=== PATIENT | male | born 1960 | race Caucasian/White ===

== ENCOUNTER 2017-06-08 11:26 | Emergency (ER) | payer BC ==
[~2017-06-08] VITALS: Ht 170.2 cm; Wt 111.7 kg
[~2017-06-08 11:26] MED LIST: ACET-1256 PO; ASPEC81 PO; ATEN50TA8 PO; BENA-4 PO; FLAXSEED OIL PO; PRAV20TA3 PO
[2017-06-08 11:32] VITALS: TEMP 36.8; Ht 170.2 cm; Wt 111.7 kg
[2017-06-08] MEDS ORDERED: MULT-506 PO (11:52)
[2017-06-08] MEDS ORDERED: ASPI81TA28 PO (11:52)
[2017-06-08] MEDS ORDERED: PRAV20TA PO (11:52)
[2017-06-08] MEDS ORDERED: BENA20TA12 PO (11:52)
[2017-06-08] MEDS ORDERED: ASCO-63 PO (11:52)
[2017-06-08] MEDS ORDERED: FLAX100024 PO (11:52)
[2017-06-08] MEDS ORDERED: HYDROmorphone INJ 1 MG/ML SYR IV STA (12:16)
[2017-06-08] MEDS ORDERED: ACETAMINOPHEN 500 MG TAB PO STA (12:16)
[2017-06-08] MEDS ORDERED: KETOROLAC TROMETHAMINE 30 MG/ML VIAL IV STA (12:16)
[2017-06-08] MEDS ORDERED: DEXAMETHASONE INJ 10 MG in SYRINGE 0 ML IV STA (12:16)
[2017-06-08 12:42] LABS: BASO % 0.3 %; BASO ABS # 0.04 K/uL (0-0.2); HEMATOCRIT 43.2 % (42-52); HEMOGLOBIN 15.6 g/dL (14.0-18.0); IG# 0.06 K/uL (0.00-0.02); LYMPH ABS # 2.55 K/uL (1.2-3.4); MEAN CELL VOLUME 83.4 fL (80-100); MEAN CORPUSCULAR HEMOGLOBIN 30.1 pg (25-34); MEAN CORPUSCULAR HGB CONC 36.1 g/dl (32-36); MONO % 5.4 %; MONO ABS # 0.63 K/uL (0.11-0.59); NEUT % 71.8 %; PLATELET COUNT 209 K/uL (130-400); RED CELL DISTRIBUTION WIDTH CV 13.3 % (11.5-14.5); RED CELL DISTRIBUTION WIDTH SD 39.7 fL (36.4-46.3); WHITE BLOOD COUNT 11.58 K/uL (4.8-10.8)
[2017-06-08 12:51] LABS: PTT PATIENT 25.1 SECONDS (21.0-31.0)
--- NOTE | 2017-06-08 13:00 | EMERGENCY ROOM VISIT NOTE ---
History Report prepared by Michael: Tyrese Resendiz Under the Supervision of: Dr. Brian Lara M.D. First contact with patient: 12:00 Chief Complaint: HIP PAIN Stated Complaint: L HIP PAIN History of Present Illness The patient is a 56 year old white male with a past medical history of sciatica , HTN, HDL, diabetes, GERD who presents to the ED with a cc of worsening left hip pain beginning four days ago. Pain radiates down his left leg. Pain worsened significantly today after walking down some stairs. Patient's pain is much worse than previous sciatic pain. Nothing has improved the pain today. Negative numbness, or bowel or bladder incontinence. No IV drug use. No history of cancer or unintended weight loss. Source of History: patient Onset: Four days ago Position: other (left hip) Timing: worsening Modifying Factors (Relieving): other (none) Note: Negative bowel or bladder incontinence. Review of Systems See HPI for pertinent positives and negatives. A total of ten systems were reviewed and were otherwise negative. Past Medical & Surgical Medical Problems: (1) HTN (hypertension) Surgical Problems: (1) H/O spinal fusion Family History No pertinent family history stated. Social History Smoking Status: Never Smoker Alcohol Use: none Drug Use: none Marital Status: Occupation Status: employed Current/Historical Medications Scheduled Ascorbic Acid (Vitamin C), 1,000 MG PO DAILY Aspirin (Aspirin Ec), 81 MG PO DAILY Atenolol (Tenormin), 50 MG PO QPM Benazepril & Hydrochlorothiazi (Lotensin Hct 20MG/25MG), 1 TAB PO DAILY Flaxseed (Linseed) (Flaxseed Oil), 1,000 MG PO BID Methylprednisolone (Medrol Dosepak), 0 PO DAILY Multivitamin (Multivitamin), 1 TAB PO DAILY Pravastatin (Pravachol ), 20 MG PO DAILY Tramadol Hcl (Ultram), 50 MG PO Q8H Scheduled PRN Cyclobenzaprine Hcl (Flexeril), 5 MG PO TID PRN for Muscle Spasms Allergies Coded Allergies: Azithromycin (Unverified Allergy, Mild, 10/07/15) Physical Exam Vital Signs Date Time Temp Pulse Resp B/P (MAP) Pulse Ox O2 Delivery O2 Flow Rate FiO2 06/08/17 13:00 57 18 123/69 95 Room Air 06/08/17 12:49 54 06/08/17 11:32 36.8 62 18 144/76 98 Room Air Physical Exam GENERAL: Awake, alert, well-appearing, NAD, prone position on exam. HENT: Normocephalic, atraumatic. EYES: Normal conjunctiva. Sclera non-icteric. NECK: Supple. No nuchal rigidity. FROM. RESPIRATORY: CTAB, no rhonchi, wheezing, crackles CARDIAC: RRR, no MRG ABDOMEN: Soft, NTND, BS+ MSK: No chest wall TTP, no LE edema. Pain in the left paraspinal area. 5/5 strength with knee flexion/extension, and ankle flexion/extension. Left leg does not appear short, IR, or ER. NEURO: GCS 15, CN 2-12 intact, moves all 4s on command SKIN: No rash or jaundice noted. Medical Decision & Procedures ER Provider Diagnostic Interpretation: Radiology results as stated below per my review and radiologist interpretation: PELVIS 1 OR 2 VIEW ROUTINE FINDINGS: The sacroiliac joints and symphysis pubis are intact. There is no acute fracture within the pelvis or the hips. Left pelvic calcifications reflect phleboliths. IMPRESSION: No acute fracture within the pelvis or hips. Electronically signed by: Manolo Ashton M.D. 06/08/2017 1:29 PM LUMBAR SPINE 5 VIEWS FINDINGS: There is no fracture. No subluxation. Mild disc space narrowing at L4-L5. Small endplate osteophytes seen throughout the lumbar spine. Mild facet osteoarthritis seen within the lower lumbar spine. There also mild degenerative changes within the bilateral sacroiliac joints. IMPRESSION: No fracture or subluxation within the lumbar spine. Mild degenerative changes as described above. Electronically signed by: Lincoln Garrison M.D. 06/08/2017 1:30 PM L HIP UNILATERAL 2 VIEWS FINDINGS: Alignment of the left hip is anatomic. There is no acute fracture. Left space is preserved. Left pelvic calcifications reflect phleboliths. IMPRESSION: No acute fracture or dislocation of the left hip. Electronically signed by: Manolo Ashton M.D. 06/08/2017 1:30 PM Laboratory Results 06/08/17 12:35 Red Blood Count 5.18, Mean Corpuscular Volume 83.4, Mean Corpuscular Hemoglobin 30.1, Mean Corpuscular Hemoglobin Concent 36.1, Mean Platelet Volume 10.0, Neutrophils (%) (Auto) 71.8, Lymphocytes (%) (Auto) 22.0, Monocytes (%) (Auto) 5.4, Eosinophils (%) (Auto) 0.0, Basophils (%) (Auto) 0.3, Neutrophils # (Auto) 8.30, Lymphocytes # (Auto) 2.55, Monocytes # (Auto) 0.63, Eosinophils # (Auto) 0.00, Basophils # (Auto) 0.04 06/08/17 12:35 Test 06/08/17 12:35 White Blood Count 11.58 K/uL (4.8-10.8) Red Blood Count 5.18 M/uL (4.7-6.1) Hemoglobin 15.6 g/dL (14.0-18.0) Hematocrit 43.2 % (42-52) Mean Corpuscular Volume 83.4 fL (80-100) Mean Corpuscular Hemoglobin 30.1 pg (25-34) Mean Corpuscular Hemoglobin Concent 36.1 g/dl (32-36) Platelet Count 209 K/uL (130-400) Mean Platelet Volume 10.0 fL (7.4-10.4) Neutrophils (%) (Auto) 71.8 % Lymphocytes (%) (Auto) 22.0 % Monocytes (%) (Auto) 5.4 % Eosinophils (%) (Auto) 0.0 % Basophils (%) (Auto) 0.3 % Neutrophils # (Auto) 8.30 K/uL (1.4-6.5) Lymphocytes # (Auto) 2.55 K/uL (1.2-3.4) Monocytes # (Auto) 0.63 K/uL (0.11-0.59) Eosinophils # (Auto) 0.00 K/uL (0-0.5) Basophils # (Auto) 0.04 K/uL (0-0.2) RDW Standard Deviation 39.7 fL (36.4-46.3) RDW Coefficient of Variation 13.3 % (11.5-14.5) Immature Granulocyte % (Auto) 0.5 % Immature Granulocyte # (Auto) 0.06 K/uL (0.00-0.02) Prothrombin Time 10.1 SECONDS (9.0-12.0) Prothromb Time International Ratio 1.0 (0.9-1.1) Activated Partial Thromboplast Time 25.1 SECONDS (21.0-31.0) Partial Thromboplastin Ratio 1.0 Anion Gap 7.0 mmol/L (3-11) Est Creatinine Clear Calc Drug Dose 103.6 ml/min Estimated GFR () 103.3 Estimated GFR (Non- 89.1 BUN/Creatinine Ratio 13.5 (10-20) Calcium Level 9.2 mg/dl (8.5-10.1) Laboratory results reviewed by me Medications Administered Medications (Trade) Dose Ordered Sig/Yann Route Start Time Stop Time Status Last Admin Dose Admin Dexamethasone Sodium Phosphate 10 mg/Syringe 2.5 ml @ 1 mls/min ONE STAT IV 06/08/17 12:16 06/08/17 12:19 DC 06/08/17 12:38 1 MLS/MIN Hydromorphone HCl (Dilaudid Inj) 1 mg NOW STAT IV 06/08/17 12:16 06/08/17 12:19 DC 06/08/17 12:35 1 MG Ketorolac Tromethamine (Toradol Inj) 30 mg NOW STAT IV 06/08/17 12:16 06/08/17 12:19 DC 06/08/17 12:36 30 MG Acetaminophen (Tylenol Tab) 1,000 mg NOW STAT PO 06/08/17 12:16 06/08/17 12:19 DC 06/08/17 12:36 1,000 MG ED Course 1210: The patient was evaluated in room C4. A complete history and physical exam was performed. 1327: I reassessed the patient. His pain is much improved. I informed him of his need for a follow-up appointment. 1400: I reevaluated the patient. Discussed results and discharge instructions: he verbalized understanding and agreement. 1430: The patient ambulated successfully. The patient is ready for discharge. Medical Decision The patient is a 56 year old white male with a past medical history of sciatica , HTN, HDL, diabetes, GERD who presents to the ED with a cc of worsening left hip pain beginning four days ago. Differential diagnosis etiologies such as fracture, dislocation, neurovascular compromise, compartment syndrome, soft tissue injury, as well as others were entertained. Patient was seen and evaluated the bedside. Patient is a history of hypertension hyperlipidemia reflux and diabetes which he takes medications. Patient states he was walking down the stairs to help fix fire at which point he has very severe left-sided hip and back pain. Patient states that it radiates and is sharp in nature. Patient denies any bowel or bladder incontinence or retention. Patient denies any saddle anesthesia. Patient does not have any other high risk back pain signs which include fever, unexplained weight loss, history of cancer, immunosuppression, or IV drug abuse. Patient did have blood work that was completed along with plain films. Patient was also given medications for symptom control. Patient's plain films showed no acute fracture or dislocation. Patient did have mild degenerative changes of the L-spine. Patient was able to ambulate. Patient was given strict follow-up , discharge, return precautions. Patient was told to follow-up with his primary care in addition was given referral to orthopedist's groups. I do not believe the patient has cauda equina, fracture, dislocation given the patient's history and physical exam. I do not believe that the patient requires any more advanced imaging at this time as the patient's pain is improved and he is ambulatory. Patient was given strict follow-up, discharge, and return precautions. All questions were answered. Patient was deemed suitable for outpatient follow-up at this time. Patient agreed with the plan of care and was safely discharged home. Medication Reconcilliation Current Medication List: was personally reviewed by me Blood Pressure Screening Patient's blood pressure: Normal blood pressure Blood pressure disposition: Did not require urgent referral Impression Primary Impression: Sciatica Additional Impression: Lumbar back pain Scribe Attestation The scribe's documentation has been prepared under my direction and personally reviewed by me in its entirety. I confirm that the note above accurately reflects all work, treatment, procedures, and medical decision making performed by me. Departure Information Dispostion Home / Self-Care Prescriptions Tramadol Hcl (ULTRAM) 50 Mg Tab 50 MG PO Q8H, #15 TAB PRN PAIN Prov: Brian Lara M.D. 06/08/17 Methylprednisolone (MEDROL DOSEPAK) 4 Mg Miguel 0 PO DAILY, #1 PKT Prov: Brian Lara M.D. 06/08/17 Cyclobenzaprine Hcl (FLEXERIL) 10 Mg Tab 5 MG PO TID Y for Muscle Spasms, #15 TAB Prov: Brian Lara M.D. 06/08/17 Referrals Maegan Merchant M.D. (PCP) [facility] Patient Instructions Back Pain - [facility], Back Pain Relieve, ED Sciatica, [facility] Additional Instructions Please return to the emergency department if you have worsening or recurrent symptoms not amenable to at-home treatment. Please call for a follow-up appointment with her primary care physician. Please take your medications as prescribed. If you have other concerns and/or complaints please feel free to also call your primary care physician's office or return the ED for further evaluation, management, and treatment. Please follow-up with your PCP at your earliest convenience in order to obtain further evaluation and treatment for her chronic low back pain. This may include stretching, exercises, and/or dedicated physical therapy. He may also benefit from seeing a back specialist and/or receiving injections. You may take tylenol 650 mg every 6 hours as needed for pain. Avoid NSAIDs while on the steroids. Please also make sure that if you try the additional pain medications and should not take a muscle relaxant the same time. Please wait 45 minutes that if he still have discomfort you may try the other medication. Take your medications as prescribed. If taking an antibiotic consider taking a probiotic and/or eating yogurt, but at the least, please take with food as it can cause upset stomach. While taking the steroids please take them in the morning and with food. Please also take a medicine like famotidine or Pepcid help with acid production. You have been examined and treated today on an emergency basis only. This is not a substitute for, or an effort to provide, complete comprehensive medical care. It is impossible to recognize and treat all injuries or illnesses in a single emergency department visit. It is therefore important that you follow up closely with [facility], your PCP, and/or your specialist(s). Call as soon as possible for an appointment. Thank you for your time and consideration. I look forward to speaking with you again soon. Please don't hesitate to call us if you have any questions. Problem Qualifiers Primary Impression: Sciatica Laterality: left Qualified Codes: M54.32 - Sciatica, left side
[2017-06-08 13:02] LABS: CALCIUM 9.2 mg/dl (8.5-10.1); CREATININE 0.95 mg/dl (0.60-1.40); POTASSIUM 3.6 mmol/L (3.5-5.1)
--- NOTE | 2017-06-08 13:30 | DIAGNOSTIC IMAGING REPORT ---
PELVIS 1 OR 2 VIEW ROUTINE CLINICAL HISTORY: Left hip pain following fall. COMPARISON STUDY: CT of the abdomen and pelvis August 05, 2009. FINDINGS: The sacroiliac joints and symphysis pubis are intact. There is no acute fracture within the pelvis or the hips. Left pelvic calcifications reflect phleboliths. IMPRESSION: No acute fracture within the pelvis or hips. Electronically signed by: Manolo Ashton M.D. 06/08/2017 1:29 PM Dictated Date/Time: 06/08/2017 1:26 PM
--- NOTE | 2017-06-08 13:31 | DIAGNOSTIC IMAGING REPORT ---
LUMBAR SPINE 5 VIEWS HISTORY: Left sided paraspinal pain, h/o sciatica, COMPARISON: None. FINDINGS: There is no fracture. No subluxation. Mild disc space narrowing at L4-L5. Small endplate osteophytes seen throughout the lumbar spine. Mild facet osteoarthritis seen within the lower lumbar spine. There also mild degenerative changes within the bilateral sacroiliac joints. IMPRESSION: No fracture or subluxation within the lumbar spine. Mild degenerative changes as described above. Electronically signed by: Lincoln Garrison M.D. 06/08/2017 1:30 PM Dictated Date/Time: 06/08/2017 1:27 PM
--- NOTE | 2017-06-08 13:31 | DIAGNOSTIC IMAGING REPORT ---
L HIP UNILATERAL 2 VIEWS CLINICAL HISTORY: Fall, hip pain. COMPARISON: CT of the abdomen and pelvis August 05, 2009. FINDINGS: Alignment of the left hip is anatomic. There is no acute fracture. Left space is preserved. Left pelvic calcifications reflect phleboliths. IMPRESSION: No acute fracture or dislocation of the left hip. Electronically signed by: Manolo Ashton M.D. 06/08/2017 1:30 PM Dictated Date/Time: 06/08/2017 1:29 PM
[2017-06-08] MEDS ORDERED: METH4PAK PO (14:02)
[2017-06-08] MEDS ORDERED: TRAM-453 PO (14:02)
[2017-06-08] MEDS ORDERED: CYCL10TA6 PO (14:02)
[2017-06-08 14:40] VITALS: BP 106/49; PULSE 70; O2SAT 93
--- NOTE | 2017-06-08 17:09 | Pharmacy Progress Note ---
ED Pharmacist Progress Note Date of Service: Jun 08, 2017. Placed a verbal prescription for tramadol 50mg q8h prn qty 15 to danial luis as a verbal from Dr. Lara.
[2017-07-19] MEDS ORDERED: OXYC15TA89 PO (08:25)
[2017-07-19] MEDS ORDERED: KETO10TA PO (08:29)
== END 2017-06-08 14:40 | disposition home or self-care (01) ==
LOC: EDBD 11:26 → C.EDC 11:27
DX: M54.40 Lumbago with sciatica, unspecified side (principal); I10 Essential (primary) hypertension; Z98.1 Arthrodesis status; Z79.82 Long term (current) use of aspirin; Z79.899 Other long term (current) drug therapy; Z88.3 Allergy status to other anti-infective agents

== ENCOUNTER 2017-06-28 13:31 | Emergency (ER) | payer BC ==
[~2017-06-28] VITALS: Ht 172.7 cm; Wt 106.8 kg
[~2017-06-28 13:31] MED LIST changes: -ACET-1256 PO; +ASCO-63 PO; -ASPEC81 PO; +ASPI81TA28 PO; -BENA-4 PO; +BENA20TA12 PO; +FLAX100024 PO; -FLAXSEED OIL PO; +MULT-506 PO; +PRAV20TA PO; -PRAV20TA3 PO; +TRAM-453 PO
[2017-06-28 13:41] VITALS: TEMP 36.9; Ht 172.7 cm; Wt 106.8 kg
[2017-06-28] MEDS ORDERED: GABA-113 PO (14:27)
[2017-06-28] MEDS ORDERED: HYDR-3419 PO (14:27)
[2017-06-28] MEDS ORDERED: MISCCAP80 PO (14:27)
[2017-06-28] MEDS ORDERED: MoRPHine SULFATE 4 MG/ML 1 ML CARP\\VIAL IV STA (14:44)
[2017-06-28] MEDS ORDERED: MoRPHine SULFATE 4 MG/ML 1 ML CARP\\VIAL IV PRN (14:45)
--- NOTE | 2017-06-28 15:02 | EMERGENCY ROOM VISIT NOTE ---
History First contact with patient: 13:58 Chief Complaint: BACK PAIN Stated Complaint: BACK PAIN History of Present Illness 56M with a PMHX of HTN and HLD who presents to the Emergency Room with complaints of acute worsening of his back pain x 1 day. His back pain has been going on for four weeks, it has been radiating to the LLE. He got an MRI from 611 on Jun 21 that showed according to two herniated disks. He got an injection on Jun 21 in his lower back (pt thinks it was a steroid) from Dr. Matta that completely alleviated the pain for several days. The injection wore off on Monday. Patient denies any urinary incontinence or numbness and tingling in between his legs. Pt has been taking Hydrocodone 7.5 /Acetaminophen tab Q6H PRN pain but has been trying to wean down in the past few days. PDMP reviewed and he received Hydrocodone/Acetaminophen 7.5/325mg, 22 tabs on Jun 19, 2017 (Rx'ed by Dr. Matta) and ultram from a previous ER visit. PMHx: Diverticulitis s/p 12 inches of colonic resection in 1992. 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 ROS: possible fevers, possible chills, no dysuria, last BM was two days ago, no urinary incontinence, no rashes, reports that his radicular LE pain has resolved , no nausea, no vomiting. Review of Systems See HPI for pertinent positives and negatives. A total of ten systems were reviewed and were otherwise negative. Past Medical/Surgical History Medical Problems: (1) HTN (hypertension) Surgical Problems: (1) H/O spinal fusion Social History Smoking Status: Never Smoker Alcohol Use: none Drug Use: none Marital Status: Occupation Status: employed Current/Historical Medications Scheduled Aspirin (Aspirin Ec), 81 MG PO DAILY Atenolol (Tenormin), 50 MG PO QPM Benazepril & Hydrochlorothiazi (Lotensin Hct 20MG/25MG), 1 TAB PO DAILY Flaxseed (Linseed) (Flaxseed Oil), 1,000 MG PO BID Gabapentin (Neurontin), 300 MG PO BID Pravastatin (Pravachol ), 20 MG PO DAILY Probiotic Product (Probiotic), 1 CAP PO DAILY Tramadol Hcl (Ultram), 50 MG PO Q8H Scheduled PRN Hydrocodon/Acetaminophen 5MG/300MG (Vicodin (5MG/300MG)), 1 TAB PO Q4H PRN for Pain Physical Exam Vital Signs Date Time Temp Pulse Resp B/P (MAP) Pulse Ox O2 Delivery O2 Flow Rate FiO2 06/28/17 19:59 86 16 100/59 96 Room Air 06/28/17 18:02 98 16 94/61 95 Room Air 06/28/17 15:04 107 16 112/72 95 Room Air 06/28/17 13:41 36.9 113 16 104/62 95 Room Air Physical Exam Gen: Pt appears in mild distress, turned onto the left side. HEENT: Head - normocephalic and atraumatic. Pupils are equal, round, and reactive to light. Extraocular eye muscles are intact and sclera are anicteric. Ears - bilaterally patent canals with noninjected tympanic membranes and no evidence of hemotympanum. Nose - moist nasal mucosa without discharge. Mouth - moist buccal mucosa. Oropharynx is nonerythematous and there is no tonsillar exudate or edema noted. Neck: Supple; no JVD, nuchal rigidity, cervical lymphadenopathy, or auscultated bruits. Heart: Regular rate and rhythm. There is a normal S1 and S2 with no murmurs, clicks, or gallops appreciated. Lungs: Clear to auscultation bilaterally with no wheezes, rales, or rhonchi. Abdomen: Soft, mild discomfort to deep palpation in the LLQ, nondistended, with good bowel sounds. There are no palpable pulsatile masses or hepatosplenomegaly. There is no guarding, rigidity, or rebound noted. Extremities: No evidence of cyanosis, clubbing, or edema. There are easily palpable peripheral pulses. MSK: Straight leg raise test was negative. Left knee and left thigh were tender to palpation. Thoracic, lumbar and sacral area was non tender to palpation on the spinous processes and paraspinally. There were no signs of trauma to the back or the hips. The patient was able to sit up on his own without difficulty. Left Knee exam: No joint effusions but he had a tender patella and posterior aspect of the knee. No ACL, PCL, LCL or MCL abnormalities on the left side. No signs of trauma or ecchymosis. No masses in the posterior fossa appreciated. Right Knee exam: No joint effusions, completely non tender to palpation. No ACL, PCL, LCL or MCL abnormalities on the left side. No signs of trauma or ecchymosis. No masses in the posterior fossa appreciated. Thigh Exam: Anterior aspect of the left thigh was tender. No signs of trauma to the thigh. Neuro:The patient is awake and alert, oriented to day, time, and place. Muscle strength is 5/5 in all 4 extremities. The patient has equal napper tender strength and equal pedal push and pull. There are no cerebellar signs. Medical Decision & Procedures ER Provider Diagnostic Interpretation: MRI OF THE LUMBAR SPINE COMBO CLINICAL HISTORY: Low back pain. Reported history of recent steroid injection. COMPARISON STUDY: Radiographs of the lumbar spine dated 06/08/2017. Abdominal CT dated 08/05/2009. TECHNIQUE: MRI of the lumbar spine is performed utilizing various T1 and T2-weighted sequences in the axial and sagittal planes. Contrast-enhanced sequences are acquired following the IV administration of 10.6 cc of Gadavist. FINDINGS: Lumbar spine: Vertebral body height and alignment are maintained throughout the lumbar spine. Minimal anterior wedging is seen involving T11 and T12. Anterior osteophytes are present throughout. Marrow signal intensity is slightly heterogeneous. The transverse and spinous processes are intact as imaged. There is no evidence of spondylolysis. No destructive bony lesion is identified. Minimal degenerative endplate edema is seen at L1-L2, L2-L3, and L3-L4. Intervertebral discs: Degenerative disc desiccation and loss of height are present at all lumbar levels. Loss of height is greatest at L1-L2 and L2-L3. Spinal cord: The partially imaged spinal cord is normal in morphology and signal intensity. The conus medullaris terminates at the T12-L1 interspace. The nerve roots of the cauda equina are normal in morphology. A punctate enhancing nodule is identified along the cauda equina. This is only seen on sagittal image #8 of the postcontrast series. No additional focus of abnormal enhancement is identified. T11-T12: This level is only seen on the sagittal series. A posterior disc bulge is seen eccentric to the right. There is no high-grade central canal stenosis. T12-L1: This level is only seen on the sagittal series. There is a tiny posterior disc bulge of no consequence. L1-L2: There is a broad-based posterior disc bulge eccentric to the left with annular fissure. There is no significant acquired compromise of the central canal. The disc bulge abuts the transiting left-sided nerve roots. The neural foramina are patent. L2-L3: There is a broad-based posterior disc bulge with annular fissure. In conjunction with hypertrophy of the ligamentum flavum, there is moderate central canal stenosis at this level with a minimum AP diameter of 7 mm. This causes severe bilateral subarticular stenosis, left greater than right, and likely abuts the exiting left L2 nerve root. The disc bulge impinges on the transiting bilateral nerve roots. L3-L4: There is minimal posterior disc bulge. The central canal is clear. The neural foramina are patent. Mild facet arthropathy is of no consequence. L4-L5: The central canal is widely patent. There is minimal disc bulge causing bilateral subarticular stenosis. Facet arthropathy causes mild bilateral neural foraminal narrowing. L5-S1: There is a small central disc bulge. There is no significant acquired compromise of the central canal. Facet arthropathy causes mild right and moderate left neural foraminal stenosis. Mild lipomatosis is present in the central canal at this level. Sacrum: The visualized sacrum is normal in morphology and signal intensity. Soft tissues: There is minimal edema within the left-sided paraspinous musculature at L5-S2. This is best seen on sagittal STIR image #13. There is fatty atrophy of the paraspinous musculature. No fluid collection is seen to suggest abscess. The psoas musculature is within normal limits. The partially imaged retroperitoneal structures are grossly normal but incompletely assessed. The liver appears enlarged on the loading rack supervisor sequence. IMPRESSION: 1. No acute bony abnormality is identified. 2. Multilevel lumbosacral spondylosis as above. This is greatest at L1-L2 and L2-L3. See discussion for detailed [id number] analysis. 3. There is minimal edema within the left paraspinous musculature at the L5-S2 levels. This may be related to the reported history of recent injections. No fluid collection is seen to suggest abscess. 4. There is a punctate nonspecific focus of enhancement/nodularity identified along the cauda equina. This is of indeterminant etiology and significance and is almost certainly not acute. This is pathologically indeterminant and a tiny mass lesion such as schwannoma could have this appearance. Follow-up contrast-enhanced MRI in 3 months time is recommended for follow-up/reassessment. Laboratory Results 06/28/17 15:00 Red Blood Count 5.11, Mean Corpuscular Volume 83.2, Mean Corpuscular Hemoglobin 30.1, Mean Corpuscular Hemoglobin Concent 36.2, Mean Platelet Volume 10.8, Neutrophils (%) (Auto) 94.5, Lymphocytes (%) (Auto) 3.5, Monocytes (%) (Auto) 1.4, Eosinophils (%) (Auto) 0.0, Basophils (%) (Auto) 0.1, Neutrophils # (Auto) 12.88, Lymphocytes # (Auto) 0.48, Monocytes # (Auto) 0.19, Eosinophils # (Auto) 0.00, Basophils # (Auto) 0.01 06/28/17 15:00 Test 06/28/17 15:00 White Blood Count 13.63 K/uL (4.8-10.8) Red Blood Count 5.11 M/uL (4.7-6.1) Hemoglobin 15.4 g/dL (14.0-18.0) Hematocrit 42.5 % (42-52) Mean Corpuscular Volume 83.2 fL (80-100) Mean Corpuscular Hemoglobin 30.1 pg (25-34) Mean Corpuscular Hemoglobin Concent 36.2 g/dl (32-36) Platelet Count 144 K/uL (130-400) Mean Platelet Volume 10.8 fL (7.4-10.4) Neutrophils (%) (Auto) 94.5 % Lymphocytes (%) (Auto) 3.5 % Monocytes (%) (Auto) 1.4 % Eosinophils (%) (Auto) 0.0 % Basophils (%) (Auto) 0.1 % Neutrophils # (Auto) 12.88 K/uL (1.4-6.5) Lymphocytes # (Auto) 0.48 K/uL (1.2-3.4) Monocytes # (Auto) 0.19 K/uL (0.11-0.59) Eosinophils # (Auto) 0.00 K/uL (0-0.5) Basophils # (Auto) 0.01 K/uL (0-0.2) RDW Standard Deviation 39.6 fL (36.4-46.3) RDW Coefficient of Variation 13.1 % (11.5-14.5) Immature Granulocyte % (Auto) 0.5 % Immature Granulocyte # (Auto) 0.07 K/uL (0.00-0.02) Hyposegmented Neutrophils 1+ Anion Gap 9.0 mmol/L (3-11) Est Creatinine Clear Calc Drug Dose 59.2 ml/min Estimated GFR () 53.0 Estimated GFR (Non- 45.7 BUN/Creatinine Ratio 11.4 (10-20) Calcium Level 8.9 mg/dl (8.5-10.1) Medications Administered Medications (Trade) Dose Ordered Sig/Yann Route Start Time Stop Time Status Last Admin Dose Admin Morphine Sulfate (MoRPHine SULFATE INJ) 3 mg NOW STAT IV 06/28/17 14:44 06/28/17 14:48 DC 06/28/17 15:03 3 MG Morphine Sulfate (MoRPHine SULFATE INJ) 3 mg Q4 PRN IV 06/28/17 14:45 06/28/17 20:30 DC 06/28/17 17:59 3 MG Sodium Chloride 1,000 ml @ 999 mls/hr Q1H1M ONCE IV 06/28/17 17:45 06/28/17 18:45 DC 06/28/17 17:58 999 MLS/HR Medical Decision The patient's care and disposition was discussed with Dr. Arreaga, Attending ED Physician. This is a 56M with back pain. Differential diagnosis include lumbar radiculopathy, muscle strain, facture, cauda equina, mass, and disc herniation. Triage Nursing notes were reviewed. ED Course included an extensive history and physical exam, labs and MRI of the lumbar spine. CBC were significant for a WBC of 13,600. BMP was significant for an elevated creatinine of 1.65. Blood cultures were obtained. Pt was given 3mg IV Morphine. 5:41pm - Ordered a bolus of NSS. 7:15 - Patient was informed on MRI results. He appeared more comfortable. Pt was advised to drink more water. We discussed not staying bed, mild to moderate exercise, stretching techniques. Pt was amenable to going home. All questions were answered. Return instructions were outlined and the patient was discharged in good condition. The patient was referred to PCP for recheck of the current condition. Impression Primary Impression: Spondylosis, lumbosacral Departure Information Dispostion Home / Self-Care Condition GOOD Referrals Papi Sales M.D.([facility]) (PCP) Patient Instructions Back Pain - [facility], My [facility] Additional Instructions Please follow up with Dr. Sales and Dr. Matta within the week. You should have a repeat MRI of the Lumbar spine with contrast in 3 months. Please stay well hydrated, your laboratory work showed that you are dehydrated. Please avoid complete bed rest. Complete bed rest can worsen back pain. Return to the ER if you back pain worsens, if you experience an inability to hold your urine, if you fall or if you develop high grade fevers. Resident Involvement: Resident Care Provided Care Provided: Adult ED
[2017-06-28 15:29] LABS: HEMATOCRIT 42.5 % (42-52); HEMOGLOBIN 15.4 g/dL (14.0-18.0); MEAN CELL VOLUME 83.2 fL (80-100); MEAN CORPUSCULAR HEMOGLOBIN 30.1 pg (25-34); MEAN CORPUSCULAR HGB CONC 36.2 g/dl (32-36); MEAN PLATELET VOLUME 10.8 fL (7.4-10.4); PLATELET COUNT 144 K/uL (130-400); RED CELL DISTRIBUTION WIDTH CV 13.1 % (11.5-14.5); RED CELL DISTRIBUTION WIDTH SD 39.6 fL (36.4-46.3); WHITE BLOOD COUNT 13.63 K/uL (4.8-10.8)
[2017-06-28 15:45] LABS: CALCIUM 8.9 mg/dl (8.5-10.1); CREATININE 1.65 mg/dl (0.60-1.40); POTASSIUM 3.4 mmol/L (3.5-5.1)
[2017-06-28 15:53] LABS: BASO % 0.1 %; BASO ABS # 0.01 K/uL (0-0.2); IG# 0.07 K/uL (0.00-0.02); LYMPH % 3.5 %; LYMPH ABS # 0.48 K/uL (1.2-3.4); MONO % 1.4 %; MONO ABS # 0.19 K/uL (0.11-0.59); NEUT % 94.5 %; NEUT ABS # 12.88 K/uL (1.4-6.5)
[2017-06-28] MEDS ORDERED: SODIUM CHLORIDE 0.9% 1000ML 1,000 ML IV ONE (17:45)
--- NOTE | 2017-06-28 18:00 | EMERGENCY ROOM VISIT NOTE ---
History Report prepared by Michael: Tyrese Resendiz Under the Supervision of: Dr. Brandon Arreaga M.D. First contact with patient: 13:58 Chief Complaint: BACK PAIN Stated Complaint: BACK PAIN History of Present Illness The patient is a 56 year old male who presents to the Emergency Room by EMS with complaints of worsening low back pain beginning three days ago. He has been struggling with back pain for the past four weeks, but it worsened significantly three days ago. He received a steroid injection eight days ago which improved the pain until this time. The patient's pain is worsened with movement. He also complains of pain radiating to his left lower extremity and chills today. He feels that he may have had a fever this morning as well. The patient denies cough, urinary incontinence, or numbness of the groin and legs. He denies recent tick bites. He had an MRI one week ago (06/21/2016) which showed two herniated discs. The patient is on four tablets of hydrocodone a day , but has been trying to decrease to two doses per day. Source of History: patient Onset: Three days ago Position: back (lower) Symptom Intensity: severe Timing: worsening Modifying Factors (Worsening): movement Associated Symptoms: + fevers (subjective), + chills, No cough, No numbness (groin and legs) Note: The patient also complains of pain radiating to his left lower extremity. He denies urinary incontinence. Review of Systems See HPI for pertinent positives & negatives. A total of 10 systems reviewed and were otherwise negative. Past Medical & Surgical Medical Problems: (1) HTN (hypertension) Surgical Problems: (1) H/O spinal fusion Family History No pertinent family history stated. Social History Smoking Status: Never Smoker Alcohol Use: none Drug Use: none Marital Status: Occupation Status: employed Current/Historical Medications Scheduled Aspirin (Aspirin Ec), 81 MG PO DAILY Atenolol (Tenormin), 50 MG PO QPM Benazepril & Hydrochlorothiazi (Lotensin Hct 20MG/25MG), 1 TAB PO DAILY Flaxseed (Linseed) (Flaxseed Oil), 1,000 MG PO BID Gabapentin (Neurontin), 300 MG PO BID Pravastatin (Pravachol ), 20 MG PO DAILY Probiotic Product (Probiotic), 1 CAP PO DAILY Tramadol Hcl (Ultram), 50 MG PO Q8H Scheduled PRN Hydrocodon/Acetaminophen 5MG/300MG (Vicodin (5MG/300MG)), 1 TAB PO Q4H PRN for Pain Allergies Coded Allergies: Azithromycin (Unverified Allergy, Mild, 06/28/17) Physical Exam Vital Signs Date Time Temp Pulse Resp B/P (MAP) Pulse Ox O2 Delivery O2 Flow Rate FiO2 06/28/17 15:04 107 16 112/72 95 Room Air 06/28/17 13:41 36.9 113 16 104/62 95 Room Air Physical Exam Constitutional: Vital signs reviewed. Eyes: Pupils are equal round reactive to light. Conjunctiva are noninjected. ENT: Pharynx is clear without erythema or exudate. Mucous membranes are moist. Neck supple without meningeal signs. Respiratory: Clear to auscultation bilaterally. Breath sounds are equal bilaterally. Cardiovascular: Regular rate and rhythm. No rubs or gallops. GI: Soft, nondistended and nontender. Bowel sounds are present. Musculoskeletal: Mild midline tenderness to the mid-lumbar spine. No swelling or erythema. Integumentary: No cyanosis. Neurological: The patient is awake and alert. No focal deficits. Motor and sensation intact in the lower extremities. Psychiatric: Normal affect. Medical Decision & Procedures Laboratory Results 06/28/17 15:00 Red Blood Count 5.11, Mean Corpuscular Volume 83.2, Mean Corpuscular Hemoglobin 30.1, Mean Corpuscular Hemoglobin Concent 36.2, Mean Platelet Volume 10.8, Neutrophils (%) (Auto) 94.5, Lymphocytes (%) (Auto) 3.5, Monocytes (%) (Auto) 1.4, Eosinophils (%) (Auto) 0.0, Basophils (%) (Auto) 0.1, Neutrophils # (Auto) 12.88, Lymphocytes # (Auto) 0.48, Monocytes # (Auto) 0.19, Eosinophils # (Auto) 0.00, Basophils # (Auto) 0.01 06/28/17 15:00 Test 06/28/17 15:00 White Blood Count 13.63 K/uL (4.8-10.8) Red Blood Count 5.11 M/uL (4.7-6.1) Hemoglobin 15.4 g/dL (14.0-18.0) Hematocrit 42.5 % (42-52) Mean Corpuscular Volume 83.2 fL (80-100) Mean Corpuscular Hemoglobin 30.1 pg (25-34) Mean Corpuscular Hemoglobin Concent 36.2 g/dl (32-36) Platelet Count 144 K/uL (130-400) Mean Platelet Volume 10.8 fL (7.4-10.4) Neutrophils (%) (Auto) 94.5 % Lymphocytes (%) (Auto) 3.5 % Monocytes (%) (Auto) 1.4 % Eosinophils (%) (Auto) 0.0 % Basophils (%) (Auto) 0.1 % Neutrophils # (Auto) 12.88 K/uL (1.4-6.5) Lymphocytes # (Auto) 0.48 K/uL (1.2-3.4) Monocytes # (Auto) 0.19 K/uL (0.11-0.59) Eosinophils # (Auto) 0.00 K/uL (0-0.5) Basophils # (Auto) 0.01 K/uL (0-0.2) RDW Standard Deviation 39.6 fL (36.4-46.3) RDW Coefficient of Variation 13.1 % (11.5-14.5) Immature Granulocyte % (Auto) 0.5 % Immature Granulocyte # (Auto) 0.07 K/uL (0.00-0.02) Hyposegmented Neutrophils 1+ Anion Gap 9.0 mmol/L (3-11) Est Creatinine Clear Calc Drug Dose 59.2 ml/min Estimated GFR () 53.0 Estimated GFR (Non- 45.7 BUN/Creatinine Ratio 11.4 (10-20) Calcium Level 8.9 mg/dl (8.5-10.1) Laboratory results as reviewed by me. Medications Administered Medications (Trade) Dose Ordered Sig/Yann Route Start Time Stop Time Status Last Admin Dose Admin Morphine Sulfate (MoRPHine SULFATE INJ) 3 mg NOW STAT IV 06/28/17 14:44 06/28/17 14:48 DC 06/28/17 15:03 3 MG Procedure 1406: The patient was evaluated in room A4B. A complete history and physical exam was performed. ED Course 1406: The patient was evaluated in room A4B. A complete history and physical exam was performed. 1444: Ordered Morphine Sulfate 3 mg IV, Morphine Sulfate 3 mg IV. Medical Decision Resident Physician Supervision Note: I did evaluate and examine this patient myself. I did guide management for the patient. I agree with the resident's Dr. Joiner assessment as discussed. Please see the resident's dictation for further details. This is a 56-year-old male who presents with low back pain and fever. Differential diagnosis includes epidural abscess, cutaneous abscess, lumbar disc disease, radicular pain, strain. I did perform a limited focused review of portions of the patient's old chart on the electronic medical record. The patient was seen in the ED for left hip pain and sciatica June 08, and was discharged with Tramadol, Flexeril and a Medrol dose pack. I did evaluate the patient as noted above. The patient has been having low back pain rating down his leg for a month. It did get better after an epidural injection but got worse recently. He also noted some chills and a tactile fever today. IV access was established. The patient was treated with IV morphine. I did order and review the patient's blood work as noted in the electronic medical record. I did order an MRI of the lumbar spine. This is pending at this time. The patient was signed out to Dr. Moss. Medication Reconcilliation Current Medication List: was personally reviewed by me Blood Pressure Screening Patient's blood pressure: Normal blood pressure Blood pressure disposition: Did not require urgent referral Impression Primary Impression: Low back pain Additional Impression: Chills Scribe Attestation The scribe's documentation has been prepared under my direct and personally reviewed by me in its entirety. I confirm that the note above accurately reflects all work, treatment, procedures, and medical decision making performed by me. Departure Information Dispostion Still a Patient Referrals Papi Sales M.D.([facility]) (PCP) Patient Instructions My [facility] Problem Qualifiers Primary Impression: Low back pain Chronicity: acute Back pain laterality: left Sciatica presence: with sciatica Sciatica laterality: sciatica of left side Qualified Codes: M54.42 - Lumbago with sciatica, left side
--- NOTE | 2017-06-28 18:51 | DIAGNOSTIC IMAGING REPORT ---
MRI OF THE LUMBAR SPINE COMBO CLINICAL HISTORY: Low back pain. Reported history of recent steroid injection. COMPARISON STUDY: Radiographs of the lumbar spine dated 06/08/2017. Abdominal CT dated 08/05/2009. TECHNIQUE: MRI of the lumbar spine is performed utilizing various T1 and T2-weighted sequences in the axial and sagittal planes. Contrast-enhanced sequences are acquired following the IV administration of 10.6 cc of Gadavist. FINDINGS: Lumbar spine: Vertebral body height and alignment are maintained throughout the lumbar spine. Minimal anterior wedging is seen involving T11 and T12. Anterior osteophytes are present throughout. Marrow signal intensity is slightly heterogeneous. The transverse and spinous processes are intact as imaged. There is no evidence of spondylolysis. No destructive bony lesion is identified. Minimal degenerative endplate edema is seen at L1-L2, L2-L3, and L3-L4. Intervertebral discs: Degenerative disc desiccation and loss of height are present at all lumbar levels. Loss of height is greatest at L1-L2 and L2-L3. Spinal cord: The partially imaged spinal cord is normal in morphology and signal intensity. The conus medullaris terminates at the T12-L1 interspace. The nerve roots of the cauda equina are normal in morphology. A punctate enhancing nodule is identified along the cauda equina. This is only seen on sagittal image #8 of the postcontrast series. No additional focus of abnormal enhancement is identified. T11-T12: This level is only seen on the sagittal series. A posterior disc bulge is seen eccentric to the right. There is no high-grade central canal stenosis. T12-L1: This level is only seen on the sagittal series. There is a tiny posterior disc bulge of no consequence. L1-L2: There is a broad-based posterior disc bulge eccentric to the left with annular fissure. There is no significant acquired compromise of the central canal. The disc bulge abuts the transiting left-sided nerve roots. The neural foramina are patent. L2-L3: There is a broad-based posterior disc bulge with annular fissure. In conjunction with hypertrophy of the ligamentum flavum, there is moderate central canal stenosis at this level with a minimum AP diameter of 7 mm. This causes severe bilateral subarticular stenosis, left greater than right, and likely abuts the exiting left L2 nerve root. The disc bulge impinges on the transiting bilateral nerve roots. L3-L4: There is minimal posterior disc bulge. The central canal is clear. The neural foramina are patent. Mild facet arthropathy is of no consequence. L4-L5: The central canal is widely patent. There is minimal disc bulge causing bilateral subarticular stenosis. Facet arthropathy causes mild bilateral neural foraminal narrowing. L5-S1: There is a small central disc bulge. There is no significant acquired compromise of the central canal. Facet arthropathy causes mild right and moderate left neural foraminal stenosis. Mild lipomatosis is present in the central canal at this level. Sacrum: The visualized sacrum is normal in morphology and signal intensity. Soft tissues: There is minimal edema within the left-sided paraspinous musculature at L5-S2. This is best seen on sagittal STIR image #13. There is fatty atrophy of the paraspinous musculature. No fluid collection is seen to suggest abscess. The psoas musculature is within normal limits. The partially imaged retroperitoneal structures are grossly normal but incompletely assessed. The liver appears enlarged on the adjustment examiner sequence. IMPRESSION: 1. No acute bony abnormality is identified. 2. Multilevel lumbosacral spondylosis as above. This is greatest at L1-L2 and L2-L3. See discussion for detailed [id number]-[id number] analysis. 3. There is minimal edema within the left paraspinous musculature at the L5-S2 levels. This may be related to the reported history of recent injections. No fluid collection is seen to suggest abscess. 4. There is a punctate nonspecific focus of enhancement/nodularity identified along the cauda equina. This is of indeterminant etiology and significance and is almost certainly not acute. This is pathologically indeterminant and a tiny mass lesion such as schwannoma could have this appearance. Follow-up contrast-enhanced MRI in 3 months time is recommended for follow-up/reassessment. Dictated: 06/28/2017 5:15 PM Transcribed: 06/28/2017 6:51 PM Hong Electronically signed by: Dimitri Gross M.D. 06/28/2017 6:54 PM Dictated Date/Time: 06/28/2017 5:15 PM
--- NOTE | 2017-06-28 19:14 | EMERGENCY ROOM VISIT NOTE ---
ED Visit Note Patient was signed out to me awaiting MRI. The MRI did not show an abscess or other acute abnormality. The patient was discharged. Patient was seen by resident.
[2017-06-28 19:59] VITALS: BP 100/59; PULSE 86; O2SAT 96
== END 2017-06-28 20:05 | disposition home or self-care (01) ==
LOC: EDBD 13:31 → C.EDA 13:32
DX: M47.817 Spondylosis without myelopathy or radiculopathy, lumbosacral region (principal); M54.42 Lumbago with sciatica, left side; R68.83 Chills (without fever); I10 Essential (primary) hypertension; Z90.49 Acquired absence of other specified parts of digestive tract; Z98.1 Arthrodesis status; Z79.82 Long term (current) use of aspirin; Z79.899 Other long term (current) drug therapy

== ENCOUNTER 2017-07-11 22:26 | Emergency (ER) | payer BC ==
[~2017-07-11] VITALS: Ht 170.2 cm; Wt 104.6 kg
[~2017-07-11 22:26] MED LIST changes: -ASCO-63 PO; +GABA-113 PO; +HYDR-3419 PO; +MISCCAP80 PO; -MULT-506 PO
[2017-07-11] MEDS ORDERED: ONDANSETRON INJ 2 MG/ML 2 ML VIAL IV STA (22:37)
[2017-07-11] MEDS ORDERED: SODIUM CHLORIDE 0.9% 1000ML 1,000 ML IV STA (22:37)
[2017-07-11 22:45] VITALS: TEMP 37.2; Ht 170.2 cm; Wt 104.6 kg
[2017-07-11] MEDS ORDERED: OPTIRAY 320 IV PRN (22:45)
[2017-07-11] MEDS ORDERED: MoRPHine SULFATE 4 MG/ML 1 ML CARP\\VIAL IV PRN (22:45)
[2017-07-11] MEDS ORDERED: HYDR-5803 PO (23:10)
[2017-07-11] MEDS ORDERED: TRAM-10 PO (23:10)
[2017-07-11] MEDS ORDERED: PROMETHAZINE HCL INJ 25 MG/ML 1 ML VIAL IM STA (23:13)
[2017-07-11] MEDS ORDERED: HYDROmorphone INJ 1 MG/ML SYR IM STA (23:13)
[2017-07-11] MEDS ORDERED: KETOROLAC TROMETHAMINE 60 MG/2 ML VIAL IM STA (23:13)
[2017-07-11] MEDS ORDERED: PRLSR20 PO (23:13)
[2017-07-11] MEDS ORDERED: DEXAMETHASONE **PF** INJ 10 MG/ML VIAL IM ONE (23:15)
[2017-07-12 00:01] VITALS: BP 119/70; PULSE 58; O2SAT 96
--- NOTE | 2017-07-13 03:51 | EMERGENCY ROOM VISIT NOTE ---
ED Visit Note First contact with patient: 22:58 CHIEF COMPLAINT: Low back pain HISTORY OF PRESENT ILLNESS: This 56 year old male patient presents to the emergency department complaining of pain in the low back which began to worsen 2 days ago. Patient has a history of ongoing back discomfort several weeks. He was seen at this facility 2 weeks ago where MRI did not show acute surgical process. The patient has been to follow with orthopedics and intermittently requires oral pain medicine for his symptoms. He has an appointment with his pain management clinic 11 hours from now. He states that he twisted while getting up from the toilet yesterday, and now is having slowly worsening and constant pain. He did take Vicodin at home 1 dose without significant improvement of symptoms today. The patient is primarily in the low back and worsens with movement. No radiation. The patient denies any loss of control of their bowel or bladder functions. There has been no leg numbness or weakness , and no change in sensation. No nausea or vomiting or abdominal pain. No chest pain or shortness of breath. No dysuria or increased urinary frequency. REVIEW OF SYSTEMS: A review of systems was performed with positives and pertinent negatives listed in the history of present illness. All other systems were reviewed and are negative. ALLERGIES: Zithromax MEDICATIONS: See EMR PMH: See EMR SOCIAL HISTORY: Lives locally PHYSICAL EXAM: VITALS: Vitals are noted on the nurse's note and reviewed by myself. Vital signs stable. GENERAL: White male, in no acute distress, nondiaphoretic, well-developed well- nourished. SKIN: The skin was without rashes, erythema, edema, or bruising. Capillary refill less than 2 seconds. NECK: Supple without nuchal rigidity. No cervical spine tenderness. No paraspinous muscle tenderness. HEART: Regular rate and rhythm without murmurs gallops or rubs. LUNGS: Clear to auscultation bilaterally without wheezes, rales or rhonchi. ABDOMEN: Positive bowel sounds x 4. Normal tympanic percussion. Soft, nontender, without masses or organomegaly. Fung sign negative. MUSCULOSKELETAL: No muscle atrophy, erythema, or edema noted of the back. There is positive tenderness over the lumbar spinous processes. There is no tenderness over the paraspinous muscles. There is no tenderness over the thoracic spine or paraspinous muscles. There are no muscle spasms present. The patient is slow to move around with maximum tenderness with flexion. Positive bilateral straight leg raise test. NEURO: Patient was alert and oriented to person place and time. Normal sensation to light and sharp touch. Deep tendon reflexes 2+ in the lower extremities. Dorsalis pedis pulse 2+ bilaterally. Strength 5/5 and equal in the bilateral lower extremities. EMERGENCY DEPARTMENT COURSE: Physical exam and history were performed. Nursing notes and EMR were reviewed. The patient appears to have low back pain slowly worsening over the past 2 days. Clinically his symptoms appear to be exacerbated with certain positions. He does not have neurologic deficit or signs of cauda equina. He had an MRI 13 days ago here, which was reviewed. Considering the patient has not had significant traumatic injury repeat imaging was not felt to be necessary. He does not appear to have symptoms of spinal abscess. I discussed options of care with the patient. He will be given IM pain medication here in the department as above. He does have an appointment early tomorrow morning with pain management, and I feel it is reasonable for him to follow-up under their care. The patient does have some Vicodin at home and he may continue this as previously prescribed. He was otherwise invited back to the ER with any new, worsening, or concerning symptoms. Problem List Medical Problems: (1) HTN (hypertension) Status: Chronic Surgical Problems: (1) H/O spinal fusion Status: Chronic Current/Historical Medications Scheduled Aspirin (Aspirin Ec), 81 MG PO QAM Atenolol (Tenormin), 50 MG PO QPM Benazepril & Hydrochlorothiazi (Lotensin Hct 20MG/25MG), 1 TAB PO QAM Flaxseed (Linseed) (Flaxseed Oil), 1,000 MG PO BID Gabapentin (Neurontin), 300 MG PO TID Omeprazole (Prilosec), 20 MG PO QAM Pravastatin (Pravachol ), 20 MG PO QPM Probiotic Product (Probiotic), 1 CAP PO QAM Scheduled PRN Hydrocodone-Acetaminophen (Hydrocodone Bitartrate/AC 7.5-325 mg), 1 TAB PO Q4H PRN for Pain Tramadol (Ultram), 50 MG PO Q8H PRN for Pain Allergies Coded Allergies: Azithromycin (Verified Allergy, Intermediate, GI SYMPTOMS, 07/11/17) Vital Signs Date Time Temp Pulse Resp B/P (MAP) Pulse Ox O2 Delivery O2 Flow Rate FiO2 07/12/17 00:01 58 17 119/70 96 07/11/17 22:45 37.2 75 18 143/87 96 Room Air Medications Administered Medications (Trade) Dose Ordered Sig/Yann Route Start Time Stop Time Status Last Admin Dose Admin Hydromorphone HCl (Dilaudid Inj) 1 mg NOW STAT IM 07/11/17 23:13 07/11/17 23:16 DC 07/11/17 23:28 1 MG Promethazine HCl (Phenergan Inj) 25 mg NOW STAT IM 07/11/17 23:13 07/11/17 23:16 DC 07/11/17 23:27 25 MG Dexamethasone Sodium Phosphate (Dexamethasone Inj Pf) 10 mg NOW ONCE IM 07/11/17 23:15 07/11/17 23:16 DC 07/11/17 23:26 10 MG Ketorolac Tromethamine (Toradol Inj) 60 mg NOW STAT IM 07/11/17 23:13 07/11/17 23:16 DC 07/11/17 23:27 60 MG Departure Information Impression Primary Impression: Low back pain Dispostion Home / Self-Care Condition GOOD Forms HOME CARE DOCUMENTATION FORM, IMPORTANT VISIT INFORMATION Patient Instructions My [facility] Additional Instructions You were seen and evaluated today on an emergency basis only. This is not a substitute for, or an effort to provide, complete comprehensive medical care. It is not possible to recognize and treat all injuries or illnesses in a single emergency department visit. For this reason it is recommended that you followup with Pain management tomorrow as scheduled. Continue your at-home medications. Do not drink or drive. You are welcome to return to the emergency department anytime with new, worsening, or concerning symptoms.
== END 2017-07-11 23:56 | disposition home or self-care (01) ==
LOC: C.EDB 22:27
DX: M54.5 Low back pain (principal); I10 Essential (primary) hypertension; Z79.82 Long term (current) use of aspirin; Z79.899 Other long term (current) drug therapy

== ENCOUNTER → 2017-07-18 | Outpatient (CLI) | payer BC ==
[~2017-07-18] MED LIST changes: -HYDR-3419 PO; +HYDR-5803 PO; +KETO10TA PO; +OXYC15TA89 PO; +PRLSR20 PO; +PSYL48.59 PO; +TRAM-10 PO; -TRAM-453 PO
== END | disposition home or self-care (01) ==
LOC: C.CPL 16:08
PROVIDERS: ATTEND Orthopaedic Surgery Orthopaedic Surgery of the Spine
DX: Z01.810 Encounter for preprocedural cardiovascular examination (principal)

== ENCOUNTER 2017-07-24 09:47 | Inpatient (IN) | payer BC ==
[2017-07-19 08:31] VITALS: BMI 38.0
--- NOTE | 2017-07-23 18:50 | HISTORY & PHYSICAL EXAMINATION ---
DATE OF ADMISSION: 07/24/2017 CHIEF COMPLAINT: Back pain, lower extremity difficulty, paresthesias, numbness, and weakness. HISTORY OF PRESENT ILLNESS: Job is pleasant. He is in significant pain, significant difficulty, paresthesias, numbness and tingling. He really cannot get upright without actually having tears in his eyes. He is tremendously uncomfortable. He has motor weakness, sensory loss of muscle atrophy as well. PAST MEDICAL HISTORY: Hypertension, high cholesterol, sleep apnea, obesity. MEDICATIONS: Atenolol, aspirin, pravastatin, probiotic, hydrochlorothiazide. PAST SURGICAL HISTORY: Neck surgery x2, intestinal GI surgery. ALLERGIES: ERYTHROMYCIN. SOCIAL HISTORY: Nonsmoker, nonalcohol user. REVIEW OF SYSTEMS: Denies any blurred vision, double vision, tinnitus, vertigo. Denies chest pain, palpitations. Denies shortness of breath, asthma, wheezing. Denies nausea, vomiting, bowel and bladder incontinence. His major complaint is musculoskeletal. He complains of left lower extremity difficulty. PHYSICAL EXAMINATION: GENERAL: He is 5 feet, 7 inches, 243. VITAL SIGNS: Blood pressure 140/80, pulse of 80, respiratory rate 16. He is 56 years of age. HEENT: Normal. LUNGS: Normal. CARDIAC: Normal S1, S2, no S3. LUNGS: Clear to auscultation. No rales, rhonchi or wheezing. ABDOMEN: Soft, nontender. MUSCULOSKELETAL: He has pain with flexion, extension of the spine. Pain with percussion. He has weakness of quadriceps on the left. He has muscle atrophy in the left. IMAGES: Demonstrate disc protrusion of the spine at L2-L3. This is significant with nerve compression and stenosis. IMPRESSION: L2-3 disc protrusion. DISPOSITION: Includes surgery which is laminectomy and fusion, L2-L3 lumbar spine.
[2017-07-24] VITALS (8 sets, daily range): BP systolic 131–186; BP diastolic 70–114; PULSE 72–102; TEMP 34.7–37.1; O2SAT 93–98; Ht 170.2 cm; Wt 110.0 kg
[~2017-07-24] VITALS: Ht 170.2 cm; Wt 110.0 kg
[~2017-07-24 09:47] MED LIST changes: +ATROPINE SULFATE 0.1 MG/ML 5ML SYR IV PRN; +CEFAZOLIN 2000MG IV PUSH 15 ML IV SCH; +EpHEDrine SULFATE INJ 50 MG/ML AMP IV PRN; -HYDR-5803 PO; +HYDROmorphone INJ 2 MG/ML SYR/VIAL IV PRN; +LACTATED RINGER'S 1000ML 1,000 ML IV SCH; +NSS 1000ML IV SCH; +ONDANSETRON INJ 2 MG/ML 2 ML VIAL IV PRN; +PHENYLEPHRINE 100MCG/ML 5ML SYR IV PRN; -PSYL48.59 PO; -TRAM-10 PO
[2017-07-24] MEDS ORDERED: PSYL48.59 PO (10:27)
--- NOTE | 2017-07-24 13:12 | History & Physical Bridge Note ---
H&P Re-Evaluation Bridge Note: I have examined the patient, reviewed the History & Physical and in the interval since the performance of the History & Physical I have noted the following changes of clinical significance: No changes noted
[2017-07-24] MEDS ORDERED: BACITRACIN 50000 UNIT VIAL ONE (13:13)
[2017-07-24] MEDS ORDERED: GELATIN SPONGE SZ 100 ONE (13:13)
[2017-07-24] MEDS ORDERED: VANCOMYCIN HCL 1000MG/20ML VIAL ONE (13:13)
[2017-07-24] MEDS ORDERED: THROMBIN FOR SOLN 20000 UNIT KIT ONE (13:13)
[2017-07-24] MEDS ORDERED: BUPIVACAINE/EPINEPHRINE 0.5% MPF 1:200,000 30 ML VIAL ONE (13:14)
[2017-07-24] MEDS ORDERED: ONDANSETRON INJ 2 MG/ML 2 ML VIAL ONE (13:20)
[2017-07-24] MEDS ORDERED: PROPOFOL IV EMULSION 10 MG/ML 20 ML VIAL IV ONE (13:20)
[2017-07-24] MEDS ORDERED: NEOSTIGMINE METHYLSULFATE 1 MG/ML 10ML VIAL ONE (13:20)
[2017-07-24] MEDS ORDERED: LIDOCAINE HCL 2% 2 ML VIAL (20MG/ML) ONE (13:20)
[2017-07-24] MEDS ORDERED: GLYCOPYRROLATE INJ 0.2 MG/ML VIAL ONE (13:20)
[2017-07-24] MEDS ORDERED: DEXAMETHASONE SOD INJ 4 MG/ML VIAL ONE (13:20)
[2017-07-24] MEDS ORDERED: MIDAZOLAM HCL 1 MG/ML 2ML VIAL ONE (13:21)
[2017-07-24] MEDS ORDERED: FENTANYL CITRATE INJ 50 MCG/1 ML 2 ML VIAL ONE (13:21)
[2017-07-24] MEDS ORDERED: LARYING-O-JET KIT (LTA) ONE (13:22)
[2017-07-24] MEDS ORDERED: SODIUM CHLORIDE 0.9% INJ 10 ML VIAL ONE (13:23)
[2017-07-24] MEDS ORDERED: HYDROmorphone INJ 2 MG/ML SYR/VIAL ONE (13:55)
[2017-07-24] MEDS ORDERED: EpHEDrine SULFATE 50MG/5ML SYR ONE (14:14)
[2017-07-24] MEDS ORDERED: ROCURONIUM BROMIDE 10 MG/ML 5 ML VIAL IV ONE (15:45)
--- NOTE | 2017-07-24 16:10 | DIAGNOSTIC IMAGING REPORT ---
SPINE ONE VIEW, ANY LEVEL HISTORY: 56 years-old Male L2-3 LAMINECTOMY status post decompression with laminectomy at L2-L3 COMPARISON: Radiographs 07/13/2017 TECHNIQUE: Single lateral spot fluoroscopic image of the lumbar spine was obtained utilizing 18.5 seconds fluoroscopy time FINDINGS: Postoperative changes compatible with posterior decompression with interbody screw fusion at what appears to be the L2-L3 level with discectomy changes, however exact level is uncertain secondary to sacrum not imaged. Multilevel intervertebral disc space narrowing and endplate spurring is seen. There is approximately 4 mm retrolisthesis of L2 on L3 which appears unchanged. IMPRESSION: Status post discectomy with posterior decompression and fusion at what appears to be the L2-L3 level demonstrating unchanged alignment from comparison. The above report was generated using voice recognition software. It may contain grammatical, syntax or spelling errors. Electronically signed by: Pepito Null M.D. 07/24/2017 4:09 PM Dictated Date/Time: 07/24/2017 4:07 PM
[2017-07-24] MEDS ORDERED: SODIUM CHLORIDE 0.9% 1000ML 1,000 ML IV SCH ×2 (16:24→19:00)
--- NOTE | 2017-07-24 16:25 | [facility] Post Operative Brief Note ---
Immediate Operative Summary Operative Date Jul 24, 2017. Pre-Operative Diagnosis Spinal Stenosis and disc herniation and instability Post-Operative Diagnosis Same as Preop Procedure(s) Performed Lumbar Laminectomy and Fusion L2-L3 and Application of Allograft Surgeon Dr. Curt Taylor Director Financial Systems Surgeon(s) Lyssa COURTNEY Estimated Blood Loss 250ml Findings Consistent with Post-Op Diagnosis Specimens None Anesthesia Type General Complication(s) none Disposition Accompanied Pt To Recover: Disposition: Recovery Room / PACU
[2017-07-24] MEDS ORDERED: HYDROmorphone HCL 0.5MG/ML 50 ML CASSETTE IV PRN (16:30)
[2017-07-24] MEDS ORDERED: MAGNESIUM HYDROXIDE SUSP 30 ML UDC PO PRN (16:30)
[2017-07-24] MEDS ORDERED: METOCLOPRAMIDE HCL INJ 5 MG/ML 2 ML VIAL IV PRN (16:30)
[2017-07-24] MEDS ORDERED: DC PCA PRN (16:30)
[2017-07-24] MEDS ORDERED: ONDANSETRON INJ 2 MG/ML 2 ML VIAL IV PRN (16:30)
[2017-07-24] MEDS ORDERED: NALOXONE HCL 0.4 MG/1 ML VIAL/CARP IV PRN (16:30)
[2017-07-24] MEDS ORDERED: LORAZEPAM INJ 1 MG in SYRINGE 0 ML IV PRN (16:30)
[2017-07-24] MEDS ORDERED: LORAZEPAM 1 MG TAB PO PRN (16:30)
[2017-07-24] MEDS ORDERED: ACETAMINOPHEN 325 MG TAB PO PRN (16:30)
[2017-07-24] MEDS ORDERED: PROMETHAZINE HCL INJ 12.5 MG in SODIUM CHLORIDE 0.9% 50ML 50 ML IV PRN (16:30)
[2017-07-24] MEDS ORDERED: HYDROmorphone HCL 0.5MG/ML 50 ML CASSETTE ONE (16:33)
--- NOTE | 2017-07-24 17:02 | OPERATIVE REPORT ---
DATE OF OPERATION: 07/24/2017 PREOPERATIVE DIAGNOSIS: Disk herniation, lumbar spine; instability and stenosis L2-L3, lumbar spine. POSTOPERATIVE DIAGNOSES: Same. PROCEDURE: Include: 1. A posterior approach lumbar spine laminectomy L2 and L3, foraminotomy, partial facetectomy, decompressing of classic stenosis. 2. Discectomy, removal of free fragment of disk at L2-L3. 4. Pedicle screw instrumentation, L2-L3. 5. Posterior lumbar interbody fusion at L2-3. 6. Posterolateral fusion. SURGEON: Dr. Taylor. [employer]: Job Campbell PA-C. COMPLICATIONS: Zero. BLOOD LOSS: 300 approximate. COMPLICATIONS: No complications. DESCRIPTION OF PROCEDURE: The patient was taken to the operating room and general intubated anesthetic provided to the patient, placed prone, prepped and draped sterile. We gave him antibiotics and took a formal timeout. We made a skin incision and fascial incision. Using C-arm guidance throughout the entire procedure. We came right down on the disk interspace at L2-L3, we took out a free fragment disk. We took out the disk material itself with significant amount of pressure on the associated nerve root. Then we did a classic decompression laminectomy for stenosis type problem. We then safely got pedicle screws in to 2 and 3 bilaterally by the [employer]. We then went on with an interbody fusion doing a complete discectomy at L2-L3, packing the interspace with autograft and allograft and an interbody device PEEK cage. We locked down the construct with some compression. We irrigated and placed bone out over the transverse processes between 2 and 3 to initiate the posterior lateral fusion. We irrigated and closed in layers over Hemovac drain over vancomycin powder. #1 Vicryl suture, 2-0 and staple gun on the skin. Sterile dressing applied. The patient returned to recovery in satisfactory and stable. No apparent complications. COUNTS: Sponge and needle count correct at the close. IMPLANTS USED: By the [employer]. I attest to the content of the Intraoperative Record and any orders documented therein. Any exception s are noted below.
--- NOTE | 2017-07-24 17:09 | Anesthesiology Progress Note ---
Anesthesia Post Op Note Date & Time Jul 24, 2017 at 17:09 Vital Signs Pain Intensity: 4 Vital Signs Past 12 Hours Date Time Temp Pulse Resp B/P (MAP) Pulse Ox O2 Delivery O2 Flow Rate FiO2 07/24/17 17:00 75 16 131/76 94 Nasal Cannula 4 07/24/17 16:50 85 16 145/72 97 Oxymask 10 07/24/17 16:40 92 16 121/82 97 Oxymask 10 07/24/17 16:30 37.8 97 16 148/86 96 Oxymask 10 07/24/17 10:10 37.1 76 18 186/114 96 Room Air 145/98 Notes Mental Status: alert / awake / arousable, participated in evaluation Pt Amnestic to Procedure: Yes Nausea / Vomiting: adequately controlled Pain: adequately controlled Airway Patency, RR, SpO2: stable & adequate BP & HR: stable & adequate Hydration State: stable & adequate Anesthetic Complications: no major complications apparent
--- NOTE | 2017-07-24 17:44 | DIAGNOSTIC IMAGING REPORT ---
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 COMPARISON: Fluoroscopic images of the lumbar spine of same day at 2:02 PM, lumbar spine MR 06/28/2017 TECHNIQUE: Multiple axial CT images of the lumbar spine were obtained without contrast. A dose lowering technique was used consistent with the principals of ALARA. FINDINGS: There are mild degenerative changes of the SI joints. No acute fracture or subluxation identified. Recent postoperative changes compatible with laminectomy with posterior interbody beka and screw fusion and discectomy at L2-L3. The orthopedic hardware appears intact. No retained foreign bodies are identified. There is unchanged 4 mm retrolisthesis L2 on L3 and L3 on L4. Small drainage catheter is noted within the posterior tissues adjacent to the epidural space. Expected postsurgical soft tissue swelling and deep tissue air is noted posteriorly with midline posterior skin kelly. No drainable fluid collections identified. No acute abnormality identified within the imaged abdomen or pelvis. Mild multilevel facet arthrosis with moderate multilevel endplate spurring. Disc desiccation is noted most prominently at the L1-L2, L4-L5 and L5-S1 levels. Multilevel posterior disc osteophyte complex formations are also seen with posterior annular disc bulging. These findings appear unchanged from comparison study 06/28/2017. No definite high-grade central canal or foraminal narrowing is identified. IMPRESSION: 1. Postoperative changes from laminectomy, discectomy with posterior interbody beka and screw fusion at L2-L3. Alignment appears unchanged from comparison. Expected postsurgical soft tissue swelling and deep tissue air without drainable fluid collection identified. Drainage catheter and skin kelly are in place. 2. No acute fracture or subluxation is identified. The above report was generated using voice recognition software. It may contain grammatical, syntax or spelling errors. Electronically signed by: Pepito Null M.D. 07/24/2017 5:43 PM Dictated Date/Time: 07/24/2017 5:35 PM
[2017-07-24 18:00] LABS: HEMATOCRIT 41.2 % (42-52); HEMOGLOBIN 14.7 g/dL (14.0-18.0)
[2017-07-24] MEDS: DEXAMETHASONE INJ 10 MG in SYRINGE 0 ML IV SCH (19:43)
[2017-07-24] MEDS: CEFAZOLIN IV 1,000 MG in SYRINGE 0 ML IV SCH (19:44)
[2017-07-24] MEDS: KETOROLAC TROMETHAMINE 30 MG/ML VIAL IV SCH (19:44)
[2017-07-24] MEDS ORDERED: FLAXSEED 1000 MG PO SCH (21:00)
[2017-07-24] MEDS: PSYLLIUM 58.6% PWD PACK S\\F PO SCH (21:11)
[2017-07-24] MEDS: GABAPENTIN 300 MG CAP PO SCH (21:11)
[2017-07-24] MEDS: PRAVASTATIN SOD 20 MG TAB PO SCH (21:11)
[2017-07-25] MEDS: KETOROLAC TROMETHAMINE 30 MG/ML VIAL IV SCH ×4 (02:20→20:19)
[2017-07-25 03:20] VITALS: BP 126/71; PULSE 96; TEMP 36.7; O2SAT 95
[2017-07-25] MEDS: CEFAZOLIN IV 1,000 MG in SYRINGE 0 ML IV SCH (04:30)
[2017-07-25] MEDS: DEXAMETHASONE INJ 10 MG in SYRINGE 0 ML IV SCH ×3 (04:43→20:19)
[2017-07-25] MEDS ORDERED: BISACODYL 10 MG SUPP PR PRN (06:00)
[2017-07-25] MEDS ORDERED: OXYCODONE/ACETAMINOPHEN 5-325 TAB PO PRN ×2 (06:00)
[2017-07-25] MEDS ORDERED: BISACODYL 5 MG TABEC PO PRN (06:00)
[2017-07-25] MEDS ORDERED: HYDROmorphone INJ 1 MG/ML SYR IV PRN ×2 (06:00)
[2017-07-25] MEDS ORDERED: HYDROmorphone INJ 2 MG/ML SYR/VIAL IV PRN (06:00)
[2017-07-25] MEDS ORDERED: NURSING VERBAL MED ORDER ONE ×2 (06:15→17:15)
[2017-07-25] MEDS: ASPIRIN 81 MG ECTAB PO SCH (07:29)
[2017-07-25] MEDS: HYDROCHLOROTHIAZIDE 25 MG TAB PO SCH (07:30)
[2017-07-25] MEDS: POLYETHYLENE (MIRALAX) 17 GM PACK PO SCH (07:30)
[2017-07-25] MEDS: PSYLLIUM 58.6% PWD PACK S\\F PO SCH ×2 (07:31→21:20)
[2017-07-25] MEDS: GABAPENTIN 300 MG CAP PO SCH ×4 (07:31→20:26)
[2017-07-25] MEDS: ENALAPRIL MALEATE 10 MG TAB PO SCH (07:32)
--- NOTE | 2017-07-25 08:26 | Anesthesia Procedure Note ---
Anesthesia Epidural Removal Nt Date & Time Jul 25, 2017 at 08:24 Vital Signs Pain Intensity: 1.0 Vital Signs Past 12 Hours Date Time Temp Pulse Resp B/P (MAP) Pulse Ox O2 Delivery O2 Flow Rate FiO2 07/25/17 07:50 Room Air 07/25/17 03:20 36.7 96 16 126/71 (89) 95 BiPAP 07/24/17 23:00 Room Air 07/24/17 22:52 36.6 89 16 131/84 (100) 97 CPAP 07/24/17 21:09 36.3 07/24/17 20:49 34.7 102 18 158/70 (99) 98 Nasal Cannula 2.0 Notes Mental Status: alert / awake / arousable Nausea / Vomiting: adequately controlled Pain: adequately controlled Airway Patency, RR, SpO2: stable & adequate BP & HR: stable & adequate Hydration State: stable & adequate Neuraxial Anesthesia: was administered Anesthetic Complications: no major complications apparent Notes: pt complained that he was unable to move his legs after procedure. pt was taken for a stat CT which was negative; Pt stated he was given steroids. This am he is able to move his legs. He still complains of mild weakness.
[2017-07-25] MEDS ORDERED: NON-FORMULARY MEDICATION (Probiotic Product (Probiotic) 1 CAP) PO SCH (09:00)
[2017-07-25] MEDS: PANTOprazole SOD 40 MG TAB PO SCH (09:06)
[2017-07-25 11:14] VITALS: BP 121/80; PULSE 90; TEMP 37.2; O2SAT 93
[2017-07-25 15:29] VITALS: BP 118/71; PULSE 93; TEMP 37.2; O2SAT 94
--- NOTE | 2017-07-25 17:28 | PROGRESS NOTE ---
DATE: 07/25/2017 SUBJECTIVE: He is still weak in his lower extremities, particularly dorsiflexion left side and right hand side. I grade his dorsiflexion strength 2/5. His quadriceps strength approximately 3/5. He can resist gravity barely. He has good push off strength. He has no upper motor neuron issues. OBJECTIVE: Vital signs stable. Wound clean. IMPRESSION: Lower extremity weakness postsurgery. DISPOSITION: Includes an MRI scan this evening, neurology consultation, IV Decadron, p.o. Neurontin, very close followup examination. We are optimistic that he will not require any more surgery and hopefully these nerve roots will go on to a nice recovery.
--- NOTE | 2017-07-25 18:17 | Neurology Consultation ---
Neurology Consultation Date of Consultation: Jul 25, 2017. Attending Physician: Naseem Taylor DO Primary Care Physician: Papi Sales M.D.(SARAY) Reason for Consultation: Consult requested by Dr. Taylor for postop leg weakness History of Present Illness Source: patient, hospital records This is a 56-year-old male who reports having progressive back pain, left leg pain, and sensory changes and weakness in left leg since May. Was noted to have disc herniation at L2/L3 and underwent laminectomy, discectomy, and fusion yesterday. Patient reports that he woke up from anesthesia noted that he could not move his legs. He did report some previous weakness with left hip flexion before surgery and some sensory changes in the left lower extremity but was mostly bothered by severe pain. Patient reports that since surgery he has had weakness and numbness in both legs. Reports that since yesterday on his right lower tremor he has been improving. He has noted less numbness and has been able to move his leg a little bit better compared to yesterday. He denies any side effects IV steroids that he's been receiving since last night. He denies any severe back pain at this time. Overall appears back pain has improved after surgery compared to before. Patient denies any upper extremity symptoms or facial symptoms. No abnormal headaches. No changes with his speech or swallowing. No loss of vision. No signs or symptoms concerning for cerebral stroke. CT of the lumbar spine was reviewed and noted normal alignment MRI of L-spine is pending. Past Medical/Surgical History Medical Problems: (1) Chills Status: Acute (2) Double vision Status: Acute (3) Low back pain Status: Acute (4) Low back pain Status: Acute (5) Lumbar back pain Status: Acute (6) Sciatica Status: Acute (7) Spondylosis, lumbosacral Status: Acute Past medical history significant for Heck's palsy, hypertension, dyslipidemia, and acid reflux Surgical history of 2 neck surgeries with hardware and intestinal surgery Family History Family history significant for cancer, diabetes, arthritis Social History Patient is normally independent in his activities of daily living. Former tobacco use. Occasional alcohol use. No illegal drug use. Smoking Status: Former smoker Drug Use: none Marital Status: Occupation Status: employed Allergies Coded Allergies: Azithromycin (Verified Allergy, Intermediate, GI SYMPTOMS, 07/24/17) Current Inpatient Medications Current Inpatient Medications Medications (Trade) Dose Ordered Sig/Yann Route Start Time Stop Time Status Last Admin Dose Admin Diphenhydramine HCl (Benadryl Cap) 25 mg Q6H PRN PO 07/24/17 16:30 08/23/17 16:29 Magnesium Hydroxide (Milk Of Magnesia Susp) 30 ml DAILY PRN PO 07/24/17 16:30 08/23/17 16:29 Bisacodyl (Dulcolax Supp) [address] 07/25/17 06:00 08/24/17 05:59 Bisacodyl (Dulcolax Tab) 5 mg DAILY PRN PO 07/25/17 06:00 08/24/17 05:59 Polyethylene (Miralax Powder Packet) 17 gm DAILY PO 07/25/17 09:00 08/24/17 08:59 Lorazepam 1 mg/ Syringe 0.5 ml @ 1 mls/min Q6H PRN IV 07/24/17 16:30 08/23/17 16:29 Lorazepam (Ativan Tab) 1 mg Q6H PRN PO 07/24/17 16:30 08/23/17 16:29 Metoclopramide HCl (Reglan Inj) 10 mg Q6H PRN IV 07/24/17 16:30 08/23/17 16:29 Ondansetron HCl (Zofran Inj) 4 mg Q6H PRN IV 07/24/17 16:30 08/23/17 16:29 Promethazine HCl 12.5 mg/Sodium Chloride 50.5 ml @ 202 mls/hr Q6H PRN IV 07/24/17 16:30 08/23/17 16:29 Ketorolac Tromethamine (Toradol Inj) 30 mg Q6H IV 07/24/17 20:00 07/25/17 20:01 07/25/17 13:38 30 MG Oxycodone/ Acetaminophen (Percocet 5-325mg Tab) 2 tab Q4H PRN PO 07/25/17 06:00 08/08/17 05:59 Hydromorphone HCl (Dilaudid Inj) 1 mg Q3H PRN IV 07/25/17 06:00 08/08/17 05:59 Oxycodone/ Acetaminophen (Percocet 5-325mg Tab) 1 tab Q4H PRN PO 07/25/17 06:00 08/08/17 05:59 Acetaminophen (Tylenol Tab) 650 mg Q6H PRN PO 07/24/17 16:30 08/23/17 16:29 Dexamethasone Sodium Phosphate 10 mg/Syringe 2.5 ml @ 1 mls/min Q8H IV 07/24/17 20:00 07/27/17 04:03 07/25/17 11:34 1 MLS/MIN Aspirin (Ecotrin Tab) 81 mg QAM PO 07/25/17 09:00 08/24/17 08:59 07/25/17 07:29 81 MG Atenolol (Tenormin Tab) 50 mg QPM PO 07/24/17 21:00 08/23/17 20:59 07/24/17 21:11 50 MG Gabapentin (Neurontin Cap) 300 mg QID PO 07/24/17 21:00 08/23/17 20:59 07/25/17 16:50 300 MG Pravastatin Sodium (Pravachol Tab) 20 mg QPM PO 07/24/17 21:00 08/23/17 20:59 07/24/17 21:11 20 MG Enalapril Maleate (Vasotec Tab) 20 mg QAM PO 07/25/17 09:00 08/24/17 08:59 07/25/17 07:32 20 MG Pantoprazole Sodium (Protonix Tab) 40 mg QAM PO 07/25/17 09:00 08/24/17 08:59 07/25/17 09:06 40 MG Psyllium Hydrophilic Mucilloid (Metamucil Powder) 1 pkt BID PO 07/24/17 21:00 08/23/17 20:59 07/25/17 07:31 1 PKT Hydromorphone HCl (Dilaudid Inj) 1.5 mg Q3H PRN IV 07/25/17 06:00 08/08/17 05:59 Hydrochlorothiazide (Hydrochlorothiazide Tab) 25 mg QAM PO 07/25/17 09:00 08/24/17 08:59 07/25/17 07:30 25 MG Review of Systems Patient reports slight increase as reflex and what feels like caffeine withdrawal headaches. Complete review of systems otherwise negative except for the above-noted history of present illness. Physical Exam Vital Signs (Past 24 Hrs): Date Time Temp Pulse Resp B/P (MAP) Pulse Ox O2 Delivery O2 Flow Rate FiO2 07/25/17 15:29 37.2 93 18 118/71 (87) 94 Room Air 07/25/17 11:14 37.2 90 17 121/80 (94) 93 07/25/17 07:50 Room Air 07/25/17 03:20 36.7 96 16 126/71 (89) 95 BiPAP 07/24/17 23:00 Room Air 07/24/17 22:52 36.6 89 16 131/84 (100) 97 CPAP 07/24/17 21:09 36.3 07/24/17 20:49 34.7 102 18 158/70 (99) 98 Nasal Cannula 2.0 07/24/17 19:35 36.8 88 16 154/81 (105) 96 Nasal Cannula 4.0 07/24/17 18:40 36.5 81 16 156/75 (102) 95 Nasal Cannula 07/24/17 18:10 36.5 72 16 164/74 (104) 94 Nasal Cannula 4.0 Gen.: Patient is alert and oriented in no acute distress sitting on the side of the bed Heart: Regular rate and rhythm Extremities: No gross deformities or rashes noted Neurological examination: Mental status: Patient is alert and oriented to person place and time. Able to give his own history. Attention concentration normal for the situation. Remote and recent memory intact Speech is fluent without any dysarthria or aphasia noted Cranial nerves: Funduscopic examination was difficult to visualize. Pupils equally round and reactive to light. Extraocular muscles intact without nystagmus. Mild upper or lower facial weakness noted on the left (old Heck's palsy). Facial sensation intact. Tongue midline. Good palatal elevation. Good shoulder shrug bilaterally. Hearing grossly intact voice. Strength: Strength 5/5 both proximally and distally in bilateral upper extremity 's. Right lower extremity hip flexion 4/5, left hip flexion 4-/5, right knee extension 4/5, left knee extension 3/5, right dorsi flexion 3/5, left dorsiflexion 2/5, bilateral plantar flexion 5/5, right inversion 2/5, right eversion 4/5, left inversion 1/5, left eversion 4-/5. Sensation: Patient reports decreased sensation to light touch in bilateral lower extremities diffusely left greater than right, distal more than proximal. Patient also reports sensory changes over his left buttocks. Sensation around waist and upper extremities is intact. Deep tendon reflexes: +1 in bilateral biceps and brachial radialis. Trace reflexes in bilateral patellar. Toes were equivocal to plantar stimulation Coordination: Patient has good finger to nose without dysmetria. Station sitting on the side of the bed is normal. Patient was not able to ambulate secondary to weakness Impression This is a 56-year-old male who presents with bilateral leg numbness and weakness postop day 1 L2/L3 laminectomy, discectomy and fusion. Most likely secondary to postop edema. While most of his severe weakness is distal to the postop area, this can still be seen with edema or lesions in the high lumbar area. Patient reports that many of his right leg symptoms have been improving over the last 24 hours which is reassuring. He may have some potential residual deficits in his left leg by history since he did report some left leg proximal weakness and sensory changes before his surgery. I think it is highly unlikely that the patient had a midline cerebral stroke causing bilateral leg weakness. Plan Agree with current treatment with IV steroids. Agree with obtaining MRI of the L-spine to rule out any additional structural etiologies or fluid collections that could be causing bilateral leg weakness. Overall the patient reports that he has significantly improved with his right leg symptoms which bodes well for a good recovery process. Agree with physical therapy evaluation and treatment. Patient likely will need some form rehabilitation. No additional neurological recommendations at this time. I will follow up the MRI of his L-spine tomorrow. Thank you for allowing me to participate in this patient's care. If there is any questions or concerns, feel free to call/page me
[2017-07-25] MEDS: PRAVASTATIN SOD 20 MG TAB PO SCH (20:26)
[2017-07-25 20:27] VITALS: BP 120/72; PULSE 89
--- NOTE | 2017-07-25 22:47 | DIAGNOSTIC IMAGING REPORT ---
LUMBAR SPINE W/O CONTRAST CLINICAL HISTORY: 56 years-old Male presenting with leg weakness, cord pressure. TECHNIQUE: Multisequence, multiplanar MR imaging of the lumbar spine was performed without the use of intravenous contrast. IV contrast: None. COMPARISON: CT of the lumbar spine from 07/24/2017. FINDINGS: Localizer images: Henderson catheter decompresses the urinary bladder. Susceptibility artifact arising from posterior lumbar fusion hardware. Posterior transpedicular screw and beka fixation of L2-3 with laminectomy defect of L2. Interbody spacer in place. Small amount of fluid in the operative bed. Susceptibility artifact in the incisional site in the posterior lumbar region. Susceptibility artifact arising from hardware slightly limits evaluation. Nonoperative levels demonstrate normal vertebral body height, alignment, and bone marrow signal intensity. Intervertebral disc spaces at the nonoperative levels demonstrate mild desiccation and height loss at L1-2 as well as L3-4 and L4-5. Mild disc bulges noted at every nonoperative as well level as well as T12-L1. Disc bulges result in mild anterior thecal sac effacement without evidence of cauda equina impingement. In combination with facet arthropathy, and barium degrees of neural foraminal narrowing also noted most severe on the right at L3-4 and L4-5 and on the left at L4-5 and L5-S1. Mass effect on the bilateral exiting L4 nerve roots suspected as well as the exiting left L5 nerve root. No epidural collection. Spinal cord ends in good position at L1. Cauda equina normal in morphology apart from mild crowding at L3. Subcutaneous edema in the incision site. Otherwise paraspinal soft tissues within normal limits. IMPRESSION: 1. Postsurgical findings of posterior lumbar fusion of L2-3 with interbody spacer and L2 laminectomy. Fluid in the operative bed likely seroma and/or evolving hematoma. 2. Multilevel degenerative changes at the nonoperative levels with varying degrees of mild thecal sac effacement. No severe stenosis or evidence of cauda equina impingement. 3. Varying degrees of neural foraminal narrowing most severe on the right at L3-4 and L4-5 and on the left at L4-5 and L5-S1. Mass effect on the bilateral exiting L4 nerve roots as well as the exiting left L5 nerve root suspected. Electronically signed by: Stevan Verduzco M.D. 07/25/2017 10:46 PM Dictated Date/Time: 07/25/2017 10:39 PM
[2017-07-25 23:21] VITALS: BP 122/69; PULSE 82; TEMP 37.1; O2SAT 94
[2017-07-26] VITALS (8 sets, daily range): BP systolic 127–143; BP diastolic 77–88; PULSE 79–92; TEMP 36.8–37.8; O2SAT 92–94
[2017-07-26] MEDS: DEXAMETHASONE INJ 10 MG in SYRINGE 0 ML IV SCH ×4 (03:32→21:30)
--- NOTE | 2017-07-26 07:47 | ORTHOPEDICS PROGRESS NOTE ---
DATE: 07/26/2017 SUBJECTIVE: Job is same today, states slightly improved quadriceps function, slightly improved dorsiflexion strength. His MRI did not demonstrate any spinal cord compression. OBJECTIVE: VITAL SIGNS: Stable. Wound clean. ASSESSMENT: Nerve root injury post-surgery more like hematoma or stretch phenomena. DISPOSITION: We will try to get him up and ambulatory today. Get rid of his Henderson catheter. We will put an order in for [facility] tomorrow which will be the . We also renewed his Decadron and Neurontin.
[2017-07-26] MEDS: ASPIRIN 81 MG ECTAB PO SCH (08:23)
[2017-07-26] MEDS: PANTOprazole SOD 40 MG TAB PO SCH (08:23)
[2017-07-26] MEDS: GABAPENTIN 300 MG CAP PO SCH ×4 (08:23→21:16)
[2017-07-26] MEDS: ENALAPRIL MALEATE 10 MG TAB PO SCH (08:23)
[2017-07-26] MEDS: PSYLLIUM 58.6% PWD PACK S\\F PO SCH ×2 (08:23→21:16)
[2017-07-26] MEDS: HYDROCHLOROTHIAZIDE 25 MG TAB PO SCH (08:24)
[2017-07-26] MEDS: POLYETHYLENE (MIRALAX) 17 GM PACK PO SCH (08:28)
--- NOTE | 2017-07-26 08:44 | Neurology Progress Notes ---
Neurology Progress Note Date of Service Jul 26, 2017. Subjective Pt reports no new neuro symptoms. Pt feels like his right leg is improving. left leg also feels less numb. feels slightly stronger today. MRI L-spine report and images reviewed by myself. No structural lesions of concern that would cause his symptoms. No cord compression of hematoma pushing on the cord. Pt dose have some stenosis around the L5 nerve roots that could have cause some temporary compromise causing more weakness than expected in dorsiflexion strength. Objective Date Time Temp Pulse Resp B/P (MAP) Pulse Ox O2 Delivery O2 Flow Rate FiO2 07/26/17 08:18 92 Room Air 07/26/17 07:39 37.8 18 130/80 (97) 92 Room Air 07/25/17 23:21 37.1 82 122/69 (86) 94 Room Air 07/25/17 20:27 89 120/72 (88) 07/25/17 19:35 Room Air 07/25/17 15:29 37.2 93 18 118/71 (87) 94 Room Air 07/25/17 11:14 37.2 90 17 121/80 (94) 93 Exam: Gen.: Patient is alert and oriented in no acute distress sitting on the side of the bed Heart: Regular rate and rhythm Extremities: No gross deformities or rashes noted Neurological examination: Mental status: Patient is alert and oriented to person place and time. Able to give his own history. Attention concentration normal for the situation. Remote and recent memory intact Speech is fluent without any dysarthria or aphasia noted Cranial nerves: Mild upper or lower facial weakness noted on the left (old Heck 's palsy). Hearing grossly intact voice. Strength: Strength 5/5 both proximally and distally in bilateral upper extremity 's. Right lower extremity hip flexion 4/5, left hip flexion 4-/5, right knee extension 4+/5, left knee extension 3/5, right dorsi flexion 3-/5, left dorsiflexion 1/5, bilateral plantar flexion 5/5, right inversion 2/5, right eversion 4/5, left inversion 1/5, left eversion 3/5. Sensation: Decreased sensation right lateral foot and left lateral calf, and medial & lateral left foot. Sensation around chest and upper extremities is intact. Station sitting on the side of the bed is normal. Patient was not able to ambulate secondary to weakness Current Inpatient Medications Medications (Trade) Dose Ordered Sig/Yann Route Start Time Stop Time Status Last Admin Dose Admin Diphenhydramine HCl (Benadryl Cap) 25 mg Q6H PRN PO 07/24/17 16:30 08/23/17 16:29 Magnesium Hydroxide (Milk Of Magnesia Susp) 30 ml DAILY PRN PO 07/24/17 16:30 08/23/17 16:29 Bisacodyl (Dulcolax Supp) 10 mg DAILY PRN [place] 07/25/17 06:00 08/24/17 05:59 Bisacodyl (Dulcolax Tab) 5 mg DAILY PRN PO 07/25/17 06:00 08/24/17 05:59 Polyethylene (Miralax Powder Packet) 17 gm DAILY PO 07/25/17 09:00 08/24/17 08:59 Lorazepam 1 mg/ Syringe 0.5 ml @ 1 mls/min Q6H PRN IV 07/24/17 16:30 08/23/17 16:29 Lorazepam (Ativan Tab) 1 mg Q6H PRN PO 07/24/17 16:30 08/23/17 16:29 Metoclopramide HCl (Reglan Inj) 10 mg Q6H PRN IV 07/24/17 16:30 08/23/17 16:29 Ondansetron HCl (Zofran Inj) 4 mg Q6H PRN IV 07/24/17 16:30 08/23/17 16:29 Promethazine HCl 12.5 mg/Sodium Chloride 50.5 ml @ 202 mls/hr Q6H PRN IV 07/24/17 16:30 08/23/17 16:29 Oxycodone/ Acetaminophen (Percocet 5-325mg Tab) 2 tab Q4H PRN PO 07/25/17 06:00 08/08/17 05:59 Hydromorphone HCl (Dilaudid Inj) 1 mg Q3H PRN IV 07/25/17 06:00 08/08/17 05:59 Oxycodone/ Acetaminophen (Percocet 5-325mg Tab) 1 tab Q4H PRN PO 07/25/17 06:00 08/08/17 05:59 07/25/17 21:56 1 TAB Acetaminophen (Tylenol Tab) 650 mg Q6H PRN PO 07/24/17 16:30 08/23/17 16:29 Aspirin (Ecotrin Tab) 81 mg QAM PO 07/25/17 09:00 08/24/17 08:59 07/25/17 07:29 81 MG Atenolol (Tenormin Tab) 50 mg QPM PO 07/24/17 21:00 08/23/17 20:59 07/25/17 20:26 50 MG Gabapentin (Neurontin Cap) 300 mg QID PO 07/24/17 21:00 08/23/17 20:59 07/25/17 20:26 300 MG Pravastatin Sodium (Pravachol Tab) 20 mg QPM PO 07/24/17 21:00 08/23/17 20:59 07/25/17 20:26 20 MG Enalapril Maleate (Vasotec Tab) 20 mg QAM PO 07/25/17 09:00 08/24/17 08:59 07/25/17 07:32 20 MG Pantoprazole Sodium (Protonix Tab) 40 mg QAM PO 07/25/17 09:00 08/24/17 08:59 07/25/17 09:06 40 MG Psyllium Hydrophilic Mucilloid (Metamucil Powder) 1 pkt BID PO 07/24/17 21:00 08/23/17 20:59 07/25/17 21:20 1 PKT Hydromorphone HCl (Dilaudid Inj) 1.5 mg Q3H PRN IV 07/25/17 06:00 08/08/17 05:59 Hydrochlorothiazide (Hydrochlorothiazide Tab) 25 mg QAM PO 07/25/17 09:00 08/24/17 08:59 07/25/17 07:30 25 MG Dexamethasone Sodium Phosphate 10 mg/Syringe 2.5 ml @ 1 mls/min Q6H IV 07/26/17 10:00 08/25/17 09:59 Loratadine/ Pseudoephedrine Sulfate (Claritin-D 24 Hour Tab) 1 tab QAM PO 07/26/17 09:00 08/25/17 08:59 UNV Impression This is a 56-year-old male who presents with bilateral leg numbness and weakness postop day 2 L2/L3 laminectomy, discectomy and fusion. Most likely secondary to postop edema with or with out possible stretch injury to the L5 nerve roots. appears to slowly be improving. Overall prognosis for recovery seems good, but he may have some potential residual deficits in his left proximal leg by history since he did report some left leg proximal weakness and sensory changes before his surgery. Plan Agree with current treatment with steroids. Agree with physical therapy evaluation and treatment and [facility]. No additional neurological recommendations at this time. Thank you for allowing me to participate in this patient's care. If there is any questions or concerns, feel free to call/page me
[2017-07-26] MEDS: LORATADINE/PSEUDOEPHEDRINE 1 TAB TABCR PO SCH (09:52)
[2017-07-26] MEDS: PRAVASTATIN SOD 20 MG TAB PO SCH (21:16)
[2017-07-27] MEDS: DEXAMETHASONE INJ 10 MG in SYRINGE 0 ML IV SCH ×2 (04:05→10:08)
--- NOTE | 2017-07-27 07:28 | Discharge Instructions ---
Discharge Instructions Date of Service Jul 27, 2017. Admission Reason for Admission: Lumbar Disc Herniation L2-L3 Discharge Discharge Diagnosis / Problem: same Discharge Goals Goal(s): Decrease discomfort Activity Recommendations Activity Limitations: as noted below . Instructions / Follow-Up Instructions / Follow-Up MEDICATIONS: Please take your prescriptions as instructed at your pre-op appointment. SPECIAL CARE: The following information is intended to answer some of the common questions and concerns regarding your surgery. Each patient is an individual and receives individual counselling throughout the course of treatment, from diagnosis to surgery all the way through recovery. What follows is not an exhaustive list, but should be a useful guide to some of the common questions and concerns patients have regarding their surgeries. These are not provided to keep you from calling us; rather, they give you something accurate and concrete to reference as you recover from your procedure. If you need us, we are available to you. As always, if you are not sure about something, call us at [phone]. MEDICAL EMERGENCIES: For these conditions, call 911 or go to your local hospital-based Emergency Department - not [facility] or equivalent. * Paralysis * Severe chest pain or difficulty breathing * Swelling or redness of either leg Spine procedures can be rather complex and though complications are rare, they do occur. In such cases, effective advice regarding emergency situations cannot always be addressed over the telephone. You may be referred to the emergency department for more effective management of your problem. Activity Limitations: It is important to give your body time to heal, so please limit your activities : * In general, don't do anything that moves your spine too much. You should avoid contact sports, twisting or heavy lifting while you recover. * 5-10 pounds is all you should attempt to lift. * You should not plan on driving for approximately 3 weeks and you should avoid traveling more than 30-45 minutes at a time. Longer trips should be broken down with walking breaks spaced appropriately. * Physical therapy is not usually required. * Walking and good posture practices will help you recover and regain your function. * Avoid straining or sudden changes in position. * In general, the goal is to take it easy and recover. Don't cause any new problems. Just relax. Showers: * Do not take a bath, use a Jacuzzi or hot tub or otherwise submerge your incision. * It is usually safe to take a shower 4-5 days after your surgery. * Your incision does not require any special creams or ointments. * Simply clean it with soap and water, dry and re-dress with a clean bandage afterwards. Incision: * Keep incision clean, dry and protected until your first follow-up appointment. * Some amount of drainage and redness is normal. Any drainage should be fairly clear and not have a foul odor. * If you feel anything is wrong or you have excessive drainage, please call us. * Your stitches and kelly will be removed 10-14 days after your surgery. At the time of your first post-op visit. * Neck surgeries are typically closed with a suture underneath the skin. The steri-strips over the incision should be maintained until we see you in the office. Bracing: * You may be provided with a back or neck brace to encourage good posture and prevent injury. It will remind you not to do too much as you heal and will alert others to the fact that you have had a surgery. * Back braces may be removed for showers and when you are resting at home. They must be worn when you are walking around for any period of time or for travel. * For neck surgery, you will likely be provided with two cervical collars. The soft collar ([place] or foam rubber) is worn most commonly throughout the day and while sleeping. The plastic collar (provided at the hospital) is for showering/bathing. * Except while eating, collars should remain in place. More specifically, bracing is provided for a purpose and should be worn. * Please obtain your brace or collars prior to your operation and bring them to the hospital with you on the day of surgery. * You should also bring your collars to your post-op appointment with Dr. Taylor. You should always take good care of your body and practice healthy habits, especially following surgery. You should: * Follow your doctor's treatment plan * Sit and stand properly with good posture (ears over shoulders, shoulders over hips) Don't slouch * Learn to lift correctly * Exercise regularly (low-impact aerobic exercise is especially good, but check with your doctor first) * Generally, be up and walking for 5-10 minutes at a time at least 3-4 times per day from the day you get home * Increasing walking to tolerance until you can walk for 20-30 minutes at a time * Attain and maintain a healthy body weight * Eat healthy foods ( a well-balanced, low-fat diet rich in fruits and vegetables) and get enough calcium * Avoid excessive use of alcohol When to call our office - If you notice any of the following: * Increased pain not relieve by pain medicine * Fevers greater then 100 degrees F, chills or flu symptoms * Increased redness around incision * Drainage from the incision that is not clear * Any foul smelling drainage * Swelling or fluid collection beneath the skin Miscellaneous: * In the hospital, you may be given a walker or cane for support while walking. These are temporary needs and are intended to prevent injuries due to falls. You may discontinue them when you feel strong and steady enough on your feet. * Sleep in a comfortable position. We find that many patients find a lounge chair or recliner with several pillows to be beneficial in the early post-operative period. * The support stockings should be used for 7-10 days and may be discontinued when you are back to walking more and conducting usual household activities. No problem is insignificant. We are here to help you and get you well. Contact us at [phone]. Definitions: Foraminotomy: If part of the disc or a bone spur (osteophyte) is pressing on a nerve as it leaves the vertebra (through an exit called the foramen), a foraminotomy may be done. Otomy means "to make an opening." A foraminotomy is making the opening of the foramen larger, so the nerve can exit without being compressed. Laminotomy: Similar to the foraminotomy, a laminotomy makes a larger opening, this time in your bony plate protecting your spinal canal and spinal cord (the lamina). The lamina may be pressing on your nerve, so the surgeon may make more room for the nerves using a laminotomy. Laminectomy: Sometimes, a laminotomy is not sufficient. The surgeon may need to remove all or part of the lamina. This procedure is called a laminectomy. This can often be done at many levels without any harmful effects. Current Hospital Diet Patient's current hospital diet: Regular Diet Discharge Diet Recommended Diet: Regular Diet Procedures Procedures Performed: Lumbar Laminectomy and Fusion L2-L3 and Application of Allograft Pending Studies Studies pending at discharge: no Medical Emergencies . Who to Call and When: Medical Emergencies: If at any time you feel your situation is an emergency, please call 911 immediately. . Non-Emergent Contact Non-Emergency issues call your: Primary Care Provider . "Provider Documentation" section prepared by Naseem Taylor. . VTE Core Measure Inpt VTE Proph given/why not?: Treatment not indicated
[2017-07-27 07:39] VITALS: BP 132/77; PULSE 76; TEMP 37; O2SAT 95
[2017-07-27] MEDS: GABAPENTIN 300 MG CAP PO SCH ×2 (08:53→13:12)
[2017-07-27] MEDS: HYDROCHLOROTHIAZIDE 25 MG TAB PO SCH (08:53)
[2017-07-27] MEDS: ASPIRIN 81 MG ECTAB PO SCH (08:53)
[2017-07-27] MEDS: LORATADINE/PSEUDOEPHEDRINE 1 TAB TABCR PO SCH (08:53)
[2017-07-27] MEDS: PSYLLIUM 58.6% PWD PACK S\\F PO SCH (08:53)
[2017-07-27] MEDS: ENALAPRIL MALEATE 10 MG TAB PO SCH (08:53)
[2017-07-27] MEDS: PANTOprazole SOD 40 MG TAB PO SCH (08:53)
[2017-07-27] MEDS: POLYETHYLENE (MIRALAX) 17 GM PACK PO SCH (08:58)
[2017-07-27 11:22] VITALS: BP 132/77; PULSE 76; TEMP 37; O2SAT 95
--- NOTE | 2017-07-27 16:17 | DISCHARGE SUMMARY ---
HISTORY OF PRESENT ILLNESS: Job is a delightful patient, I operated on in a few days ago. He had a fairly significant weakness. In recovery room, slowly improving. As of today, he states he is alert, oriented and cooperates well. Asked intelligent questions. No confusion. No chest pain, shortness of breath. He has walking, he is up with physical therapy. Wound clean and dry. Afebrile. ASSESSMENT: Reconstruct of the spinal surgery and fusion. DISPOSITION: [facility] with appropriate place for him, some overall rehab or optimistic his legs will improve, overall strength. This will take several weeks, maybe in several months. We will see him back in the office in approximately 10 days. Instructions, precautions provided.
--- NOTE | 2017-07-31 14:42 | EDITING REQUIRED CODING QUERY ---
CODING QUERY To promote full compliance with coding requirements relating to patient care, provider participation is requested in all cases of materials director uncertainty. Please assist us with the question(s) below: Coding Question(s): Patient admitted with lumbar spinal stenosis and disc displacement. Surgery - discectomy and fusion. Postop patient developed we weakness and numbness. * Progress note dated 07/26 stated nerve root injury post surgery more like hematoma or stretch phenomenon. Pt transferred to [facility]. Please check the phrase that addresses the etiology of the postspinal weakness. Thank you. Joao Andino [facility] Physician's Response(s): The leg weakness/numbness/nerve injury is not a complication of the fusion procedure The leg weakness/numbness/nerve injury is a complication of the fusion procedure Cannot correlate if the weaknss/numbess/nerve injury is a complication of the fusion procedure Other/ Please document: Principal Diagnosis: "_that condition established after study, to be chiefly responsible for occasioning the admission of the patient to the hospital for care." Co-Existing Principal Diagnosis: "_when two or more diagnoses equally meet the criteria for principal diagnosis as determined by the circumstances of admission, diagnostic work up, and/or therapy provided, and the Alphabetic Index, Tabular List, or another coding guideline does not provide sequencing direction, any one of the diagnoses may be sequenced first." "When the physician has documented what appears to be a current diagnosis in the body of the record, but has not included the diagnosis in the final diagnostic statement, the physician should be asked whether the diagnosis should be added." (Source [facility] 2 QTR90. p3-4)
--- NOTE | 2017-08-17 09:56 | OPERATIVE REPORT ---
DATE OF OPERATION: 07/24/2017 This is an editing required for code query. My responses is that his leg weakness, numbness, nerve injury is a complication of the posterior lumbar interbody fusion procedure. I attest to the content of the Intraoperative Record and any orders documented therein. Any exception s are noted below.
== END 2017-07-27 15:36 | DRG 454 ==
LOC: C.ACU 09:47 → C.3E 16:31 → ENRESERV 17:02
PROVIDERS: ADMIT Orthopaedic Surgery Orthopaedic Surgery of the Spine; ATTEND Orthopaedic Surgery Orthopaedic Surgery of the Spine
PROC: 0SG00AJ Fusion of Lumbar Vertebral Joint with Interbody Fusion Device, Posterior Approach, Anterior Column, Open Approach (ICD-10-PCS; principal; 2017-07-24 11:45)
PROC: 0ST20ZZ Resection of Lumbar Vertebral Disc, Open Approach (ICD-10-PCS; principal; 2017-07-24 11:45)
PROC: 0SG00J1 Fusion of Lumbar Vertebral Joint with Synthetic Substitute, Posterior Approach, Posterior Column, Open Approach (ICD-10-PCS; principal; 2017-07-24 11:45)
DX: M51.26 Other intervertebral disc displacement, lumbar region (principal); G97.82 Other postprocedural complications and disorders of nervous system; S34.21XA Injury of nerve root of lumbar spine, initial encounter; M48.061 Spinal stenosis, lumbar region without neurogenic claudication; R53.1 Weakness; E78.5 Hyperlipidemia, unspecified; G47.30 Sleep apnea, unspecified; Z88.1 Allergy status to other antibiotic agents; M47.897 Other spondylosis, lumbosacral region; R20.0 Anesthesia of skin; R60.0 Localized edema; Y83.8 Other surgical procedures as the cause of abnormal reaction of the patient, or of later complication, without mention of misadventure at the time of the procedure; Y92.239 Unspecified place in hospital as the place of occurrence of the external cause